=== PATIENT | male | born 1935 | race Hispanic/Latino ===

== ENCOUNTER 2020-05-16 17:58 | Observation (INO) | payer MEDICARE, OTHER ==
[~2020-05-16] VITALS: Ht 172.7 cm; Wt 80.7 kg
[~2020-05-16 17:58] MED LIST: GLIPIZIDE10 MG PO; GLUCOPHAGE1000 MG PO; LISINOPRIL40 MG PO
[2020-05-16 19:01] LABS: BASOPHILS % 0.2 % (0.0-1.0); EOSINOPHILS % 0.4 % (0.0-6.0); HEMOGLOBIN 8.8 g/dL (14.0-18.0); LYMPHOCYTES # (AUTO) 0.7 (1.0-3.2); LYMPHOCYTES % 6.4 % (18.0-39.1); MEAN CORPUSCULAR HEMOGLOBIN 26.4 pg (28-32); MEAN CORPUSCULAR HGB CONC 29.3 g/dL (31-35); MEAN CORPUSCULAR VOLUME 90.1 fL (81-99); MONOCYTES # (AUTO) 0.6 (0.2-0.8); MONOCYTES % 5.8 % (4.4-11.3); NEUTROPHILS # (AUTO) 8.8 (2.1-6.9); NEUTROPHILS % 86.8 % (38.7-80.0); PLATELET COUNT 227 x10e3/uL (140-360); RED BLOOD COUNT 3.33 x10e6/uL (4.3-5.7); RED CELL DISTRIBUTION WIDTH 22.7 % (11.7-14.4)
[2020-05-16] MEDS ORDERED: DEXTROSE 50% SYRINGE 50 ML IV STA ×4 (19:16→23:02)
[2020-05-16 19:18] LABS: ALBUMIN 2.6 g/dL (3.5-5.0); ALBUMIN/GLOBULIN RATIO 0.8 (0.8-2.0); ANION GAP 11.9 mmol/L (8-16); CREATININE, SERUM 1.26 mg/dL (0.72-1.25); POTASSIUM 3.9 mmol/L (3.5-5.1)
[2020-05-16 19:25] LABS: CREATINE KINASE MB 4.4 ng/mL (0-5.0)
[2020-05-16] MEDS ORDERED: DEXTROSE 5%/0.45% SOD CHL 1,000 ML IV ONE (19:30)
--- NOTE | 2020-05-16 19:36 | Emergency Department Note ---
History of Present Illnes History of Present Illness Chief Complaint: General Medicine Complaints History of Present Illness This is a 84 year old male FROM [facility] WITH BLOOD SUGAR 40. EMS LINE NON PATENT. PT STUPORUS ON ARRIVAL, STAT IV AND D50 IVP ONE AMP WITH PT NOW AAOX4. PT ARRIVED WITH STEPHENS. 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 Any updates have been documented here. Past Medical History Recent Fever: No Clinical Suspicion of Infectio: No New/Unexplained Change in Ment: No Past Medical History: Hypertension, Diabetes, A-Fib, CAD, Cancer, Hy perlipedemia Other Medical History: BPH PVD Other Surgery: MELANOMA REMOVAL RIGHT HAND RT BKA Social History Smoking Cessation: Unknown if ever smoked Counseling Performed: No Alcohol Use: None Other Last Tetanus: UNK Last Flu: UNK BY PT Last Pneumovax: UNK BY PT Review of Systems Review of Systems Constitutional: Reports no symptoms EENTM: Reports no symptoms Cardiovascular: Reports no symptoms Respiratory: Reports no symptoms Gastrointestinal: Reports no symptoms Genitourinary: Reports no symptoms Musculoskeletal: Reports no symptoms Integumentary: Reports no symptoms Neurological: Reports as per HPI Psychological: Reports no symptoms Endocrine: Reports no symptoms Hematological/Lymphatic: Reports no symptoms Physical Exam Related Data Allergies: Coded Allergies: No Known Allergies (Unverified , 07/31/13) Triage Vital Signs Vital Signs Date Time Temp Pulse Resp B/P (MAP) Pulse Ox O2 Delivery O2 Flow Rate FiO2 05/16/20 18:16 97.2 74 16 119/70 97 Vital signs reviewed: Yes Physical Exam CONSTITUTIONAL Constitutional: Present well-developed, Present well-nourished HENT HENT: Present normocephalic, Present atraumatic, Present oropharynx clear/moist, Present nose normal HENT L/R: Present left ext ear normal, Present right ext ear normal EYES Eyes: Reports PERRL, Reports conjunctivae normal NECK Neck: Present ROM normal PULMONARY Pulmonary: Present effort normal, Present breath sounds normal CARDIOVASCULAR Cardiovascular: Present regular rhythm, Present heart sounds normal, Present capillary refill normal, Present normal rate GASTROINTESTINAL Abdominal: Present soft, Present nontender, Present bowel sounds normal GENITOURINARY Genitourinary: Present exam deferred, Present other (indwelling stephens cath present) SKIN Skin: Present warm, Present dry MUSCULOSKELETAL Musculoskeletal: Present ROM normal, Present other (right bka) NEUROLOGICAL Neurological: Present alert, Present oriented x 3, Present no gross motor or sensory deficits PSYCHOLOGICAL Psychological: Present mood/affect normal, Present judgement normal Results Laboratory Result Diagram: 05/16/20181305/16/201813 Laboratory Laboratory Tests Test 05/16/20 19:18 05/16/20 18:14 05/16/20 18:07 Bedside Glucose 53 mg/dL (70-120) 293 mg/dL (70-120) White Blood Count 10.13 x10e3/uL (4.8-10.8) Red Blood Count 3.33 x10e6/uL (4.3-5.7) Hemoglobin 8.8 g/dL (14.0-18.0) Hematocrit 30.0 % (38.2-49.6) Mean Corpuscular Volume 90.1 fL (81-99) Mean Corpuscular Hemoglobin 26.4 pg (28-32) Mean Corpuscular Hemoglobin Concent 29.3 g/dL (31-35) Red Cell Distribution Width 22.7 % (11.7-14.4) Platelet Count 227 x10e3/uL (140-360) Neutrophils (%) (Auto) 86.8 % (38.7-80.0) Lymphocytes (%) (Auto) 6.4 % (18.0-39.1) Monocytes (%) (Auto) 5.8 % (4.4-11.3) Eosinophils (%) (Auto) 0.4 % (0.0-6.0) Basophils (%) (Auto) 0.2 % (0.0-1.0) Neutrophils # (Auto) 8.8 (2.1-6.9) Lymphocytes # (Auto) 0.7 (1.0-3.2) Monocytes # (Auto) 0.6 (0.2-0.8) Eosinophils # (Auto) 0.0 (0.0-0.4) Basophils # (Auto) 0.0 (0.0-0.1) Absolute Immature Granulocyte (auto 0.04 x10e3/uL (0-0.1) Sodium Level 141 mmol/L (136-145) Potassium Level 3.9 mmol/L (3.5-5.1) Chloride Level 101 mmol/L (98-107) Carbon Dioxide Level 32 mmol/L (22-29) Anion Gap 11.9 mmol/L (8-16) Blood Urea Nitrogen 23 mg/dL (7-26) Creatinine 1.26 mg/dL (0.72-1.25) Estimat Glomerular Filtration Rate 55 ML/MIN (60-) BUN/Creatinine Ratio 18 (6-25) Glucose Level 110 mg/dL (74-118) Calcium Level 9.0 mg/dL (8.4-10.2) Total Bilirubin 0.5 mg/dL (0.2-1.2) Aspartate Amino Transf (AST/SGOT) 19 IU/L (5-34) Alanine Aminotransferase (ALT/SGPT) 10 IU/L (0-55) Alkaline Phosphatase 86 IU/L (40-150) Creatine Kinase 61 IU/L (30-200) Creatine Kinase MB 4.40 ng/mL (0-5.0) Troponin I 0.012 ng/mL (0-0.300) Total Protein 6.0 g/dL (6.5-8.1) Albumin 2.6 g/dL (3.5-5.0) Globulin 3.4 g/dL (2.3-3.5) Albumin/Globulin Ratio 0.8 (0.8-2.0) Lab results reviewed: Yes Imaging Imaging results reviewed: Yes Impressions Examination: Single AP view of the chest. COMPARISON: AP chest 08/06/2013 INDICATION: Shortness of breath, hypoglycemia IMPRESSION: 1. Lines and Tubes: None 2. Hypoinflated lungs. Bibasilar atelectatic changes. Ulceration of bilateral costophrenic sulci and hemidiaphragms, suggesting bilateral pleural effusions and associated bilateral lower lobe atelectasis. Bilateral perihilar interstitial opacities likely reflect mild edema/fluid overload. 3. Cardiac silhouette is obscured. Ventral pulmonary venous congestion. 4. No acute bony abnormalities. Signed by: Dr. Carter Luna M.D. 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: Interpreted by ED physician Date: May 16, 2020 Time: 19:38 Rhythm: sinus bradycardia Ectopy: infrequent PVC's Rate: bradycardia BPM: 56 Conduction: complete LBBB ST segments normal: Yes T waves normal: Yes Q waves: V1 Clinical Impression: abnormal ECG Critical Care Time Total Critical Care Time (min): 45 Critcal care necessary due to: endocrine crisis Critcal care time spent by me: blood dram for specimens, develop tx plan w patient/surrogate, discussion w consultants, evaluation patient response to tx, examination of patient, order/perform tx or interventions, order/review laboratory studies, re-evaluation of patient condition, review of old charts Assessment & Plan Medical Decision Making MDM pt with hypoglycemia, cbc, cmp, ekg, cardiac enzymes, ua ordered to eval for uti, myocardial infarctio n, electrolyte abnormality d51/2 ns at 125/hour ordered, glucerna po ordered, will continue to follow blood sugar. Reassessment Reassessment time: 05:23 Reassessment DESPITE EFFORTS PT CONTINUES TO DROP BLOOD SUGAR BELOW 60 EVERY HOUR TO HOUR AND A HALF, PT WILL REQUIRE ADMIT TO ICU Assessment & Plan Final Impression: (1) UTI (urinary tract infection) (2) Hypoglycemia secondary to sulfonylurea Depart Disposition: ADMITTED Last Vital Signs Date Time Temp Pulse Resp B/P (MAP) Pulse Ox O2 Delivery O2 Flow Rate FiO2 05/16/20 19:11 63 18 118/62 100 05/16/20 18:16 97.2 Home Meds Reported Medications Glipizide (GLIPIZIDE) 10 Mg Tablet, 10 MG PO DAILY 07/16/13 Metformin Hcl (GLUCOPHAGE) 1,000 Mg Tablet, 1000 MG PO BID 07/16/13 Lisinopril (LISINOPRIL) 40 Mg Tablet, 20 MG PO BID 07/16/13 Medications in the ED Dextrose 50 ml NOW STAT IV Last administered on 05/16/20at 18:10; Admin Dose 50 ML; Start 05/16/20 at 19:16; Stop 05/16/20 at 19:19; Status DC Dextrose 50 ml NOW STAT IV ; Start 05/16/20 at 19:20; Stop 05/16/20 at 19:24; Status DC Dextrose/Sodium Chloride 1,000 ml @ 125 mls/hr Q8H ONCE IV ; Start 05/16/20 at 19:30; Stop 05/17/20 at 03:29 ORION MEDINA MD May 16, 2020 19:36
[2020-05-16] MEDS ORDERED: DEXTROSE 10% 1,000 ML IV ONE (21:00)
--- NOTE | 2020-05-16 21:09 | NUR ---
PT GIVEN GLUCERNA. PT TOLERATED WELL.
[2020-05-16 21:25] LABS: COLOR,URINE YELLOW (YELLOW)
[2020-05-16 21:26] LABS: BILIRUBIN,URINE NEGATIVE (NEGATIVE); CLARITY,URINE SL CLOUDY (CLEAR); KETONES,URINE NEGATIVE (NEGATIVE); LEUKOCYTE ESTERASE ,URINE SMALL (NEGATIVE); NITRITE,URINE POSITIVE (NEGATIVE); PROTEIN,URINE DIPSTICK NEGATIVE (NEGATIVE); URINE UROBILINOGEN 0.2 mg/dL (0.2 - 1)
[2020-05-16 21:36] LABS: AMORPHOUS SEDIMENT,URINE MODERATE (FEW); BACTERIA,URINE MANY /HPF; EPITHELIAL CELLS,URINE FEW /LPF; RBC,URINE 0-5 /HPF (0-5)
--- NOTE | 2020-05-16 22:35 | Diagnostic Imaging Report ---
Examination: Single AP view of the chest. COMPARISON: AP chest 08/06/2013 INDICATION: Shortness of breath, hypoglycemia IMPRESSION: 1. Lines and Tubes: None 2. Hypoinflated lungs. Bibasilar atelectatic changes. Ulceration of bilateral costophrenic sulci and hemidiaphragms, suggesting bilateral pleural effusions and associated bilateral lower lobe atelectasis. Bilateral perihilar interstitial opacities likely reflect mild edema/fluid overload. 3. Cardiac silhouette is obscured. Ventral pulmonary venous congestion. 4. No acute bony abnormalities. Signed by: Dr. Gaudencio Luna M.D. on 05/16/2020 10:32 PM
[2020-05-16] MEDS ORDERED: CEFTRIAXONE SOD 1 GM/NS 50 ML 50 ML IV ONE (23:00)
[2020-05-17] VITALS (11 sets, daily range): BP systolic 113–135; BP diastolic 48–87
[2020-05-17] MEDS: DEXTROSE 50% SYRINGE 50 ML IV PRN ×3 (01:04→06:32)
[2020-05-17] MEDS ORDERED: FUROSEMIDE INJ 10 MG/ML 2 ML VIAL IV ONE ×2 (03:15→04:30)
--- NOTE | 2020-05-17 04:19 | NUR ---
PT C/O INCREASED SOB. EXPIRATORY WHEEZING NOTED. ER MD NOTIFIED AND AWARE. ER MD AT BEDSIDE FOR ASSESSMENT. RADIOLOGY CALLED FOR REPEAT CHEST XRAY AND REPEAT CARDIAC MARKERS, BMP AND BNP OBTAINED.
[2020-05-17 04:40] LABS: ANION GAP 15.1 mmol/L (8-16); CALCIUM 8.8 mg/dL (8.4-10.2); CREATININE, SERUM 1.19 mg/dL (0.72-1.25); POTASSIUM 4.1 mmol/L (3.5-5.1)
[2020-05-17 04:47] LABS: CREATINE KINASE MB 6.1 ng/mL (0-5.0)
--- NOTE | 2020-05-17 04:51 | Diagnostic Imaging Report ---
Examination: Single AP view of the chest. COMPARISON: Portable chest 05/16/2020 INDICATION: Shortness of breath, hypoglycemia IMPRESSION: 1. Lines and Tubes: None 2. No interval change in hypoinflated lungs, bibasilar atelectatic changes and obscuration of bilateral costophrenic sulci and hemidiaphragms system with bilateral pleural effusions and associated bilateral lower lobe atelectasis. Stable central venous crowding and bilateral perihilar edema. 3. Cardiomediastinal silhouette is obscured. Central pulmonary venous congestion 4. No acute bony abnormalities. Signed by: Dr. Gaudencio Luna M.D. on 05/17/2020 4:48 AM
[2020-05-17] MEDS ORDERED: DEXTROSE 50% SYRINGE 50 ML IV PRN (05:15)
[2020-05-17] MEDS ORDERED: ONDANSETRON HCL INJ 2MG/ML 2ML 2 MG/ML VIAL IV PRN (05:30)
[2020-05-17] MEDS ORDERED: FUROSEMIDE INJ 10 MG/ML 4 ML VIAL IV ONE ×2 (06:30→08:00)
[2020-05-17] MEDS ORDERED: METHYLPREDNISOLONE SOD SUCC 125 MG/2ML VIAL ONE (06:40)
--- NOTE | 2020-05-17 06:40 | NUR ---
RT AT BEDSIDE TO ADMINISTER DUONEB TREATMENT.
[2020-05-17] MEDS ORDERED: ALBUTEROL/IPRATROPIUM 3 ML NEB NEB ONE (06:45)
[2020-05-17] MEDS ORDERED: METHYLPREDNISOLONE SOD SUCC 125 MG/2ML VIAL IV ONE (06:45)
[2020-05-17] MEDS: OCTREOTIDE ACETATE 0.05 MG/ML AMP SQ SCH ×4 (07:29→23:46)
--- NOTE | 2020-05-17 07:30 | NUR ---
PT AAOX4. SITTING MODIFIED HIGH FOWLERS, MONITORS ON, O2, SLIGHTLY TACHYPNENIC, DENIES CP, STATES SLIGHT SOB AND STATES "BETTER" THAN EARLIER. FOOD TRAY BEING EATTEN. PT UPDATED PLAN OF CARE. SR NO ECTOPY. SKIN COOL/DRY. FS DONE 71
--- NOTE | 2020-05-17 07:42 | NUR ---
PT IS FROM [facility], WHEN DISCHARGE IS WRITTEN, THEN CLINICALS WILL NEED TO BE SENT TO FACILITY AT [phone]
[2020-05-17] MEDS: LISINOPRIL 20 MG TAB PO SCH ×2 (08:11→16:43)
--- NOTE | 2020-05-17 08:11 | NUR ---
PAUL HERE TO SEE PT
[2020-05-17] MEDS ORDERED: DEXTROSE 10% 1,000 ML IV ONE (08:15)
--- NOTE | 2020-05-17 08:42 | Diagnostic Imaging Report ---
EXAMINATION: CHEST SINGLE (PORTABLE) INDICATION: Shortness of breath COMPARISON: Chest radiograph of earlier the same day FINDINGS: LINES/TUBES:EKG leads overlie the chest. LUNGS:The lung volumes remain low. Bibasilar patchy opacities. PLEURA:No pleural effusion or pneumothorax. MEDIASTINUM:The cardiomediastinal silhouette appears unchanged in size and shape. Atherosclerotic calcifications of the thoracic aorta. BONES/SOFT TISSUES:Postoperative findings of prior CABG. Sternotomy wires in place. ABDOMEN:No free air under the diaphragm. IMPRESSION: No significant interval change. Signed by: Jace Callahan MD on 05/17/2020 8:39 AM
--- NOTE | 2020-05-17 08:51 | Consultation ---
DATE OF CONSULTATION: Pulmonary Critical Care Consultation CHIEF COMPLAINT: Hypoglycemia. HISTORY OF PRESENT ILLNESS: The patient is an 84-year-old man with a history of systolic cardiomyopathy and congestive heart failure, diabetes, atrial fibrillation, and recent nxzrp-afe-fftz amputation for peripheral vascular disease. The patient was hospitalized at [facility] about 3 weeks ago for amputation. He has been at [facility] for about 2 [facility]. He was transferred to the hospital because of decreased responsiveness and low blood sugars. Apparently, he was taking glipizide as well as metformin. When he arrived, he required D50 and had to be placed on a D10 drip. His blood sugars have been persistently low. He denies any fever or chills. He is not complaining of cough or dyspnea. PAST SURGICAL HISTORY: 1. Status post removal of a melanoma from the right hand. 2. Status post right xjaof-eny-gyrs amputation. PAST MEDICAL HISTORY: 1. Chronic systolic congestive heart failure. 2. Diabetes. 3. Cancer. 4. Hypertension. 5. Benign prostatic hypertrophy. SOCIAL HISTORY: The patient is staying at [facility]. He is not an active smoker or drinker. ALLERGIES: THE PATIENT HAS NO KNOWN DRUG ALLERGIES. FAMILY HISTORY: Noncontributory. REVIEW OF SYSTEMS: The patient is afebrile. He is not complaining of headache or neck pain. He does not complain of chest pain. He notes mild dyspnea. He has no cough. He has no abdominal pain. He has no nausea or vomiting. He is concerned about the wound care from his recent amputation. PHYSICAL EXAMINATION: VITAL SIGNS: The blood pressure is 144/65 and the respiratory rate is 22. Pulse is 74 and the saturation is 98%. He is on a nasal cannula. HEENT: Shows no facial swelling or erythema. CARDIAC: Reveals regular rate and rhythm with normal S1 and S2. LUNGS: Auscultation of lungs reveals crackles and rhonchi at the bases. There is no wheezing. ABDOMEN: Soft and nontender. There is no rebound or guarding. EXTREMITIES: Shows zqwjv-lxl-zgxw amputation on the right side. NEUROLOGICAL: There are no focal neurological abnormalities. LABORATORY DATA: White blood cell count is 10.1 and hemoglobin is 8.8. The platelet count is 227. BUN to creatinine ratio is 23 to 1.19. The BNP is 2610. Other electrolytes within normal limits. RADIOGRAPHIC DATA: Chest x-ray shows bibasilar atelectasis and possible small pleural effusions. IMPRESSION: 1. Hypoglycemia secondary to medications. 2. Chronic systolic congestive heart failure. 3. Paroxysmal atrial fibrillation. 4. Chronic renal insufficiency, stage 3. 5. Anemia, unspecified. 6. Peripheral vascular disease leading to xpeaw-ouc-cbcb amputation. 7. Benign prostatic hypertrophy. PLAN: 1. Continue D10 drip and monitor blood sugars every hour. 2. Continue Lasix. 3. Echocardiogram and Cardiology evaluation. 4. Wound care. 5. Monitor blood pressure and creatinine. Lm Chowdhury MD [facility]/MODL /[id number]
[2020-05-17] MEDS ORDERED: NON-FORMULARY MEDICATION (Lisinopril 20 MG) PO SCH (09:00)
[2020-05-17] MEDS ORDERED: FINASTERIDE5 MG PO (12:17)
[2020-05-17] MEDS ORDERED: AMIODARONE HCL200 MG PO (12:17)
[2020-05-17] MEDS ORDERED: FLOMAX0.4 MG PO (12:17)
[2020-05-17] MEDS ORDERED: ACETAMINOPHEN325 M1 PO (12:17)
[2020-05-17] MEDS ORDERED: POTASSIUM CHLO20 ME1 PO (12:17)
[2020-05-17] MEDS ORDERED: ZAROXOLYN PO (12:17)
[2020-05-17] MEDS ORDERED: ISOSORBIDE DINI20 MG PO (12:17)
[2020-05-17] MEDS ORDERED: FUROSEMIDE80 MG PO (12:17)
[2020-05-17] MEDS ORDERED: LEVOTHYROXINE75 MCG PO (12:17)
[2020-05-17] MEDS ORDERED: ATORVASTATIN CA20 MG PO (12:17)
[2020-05-17] MEDS ORDERED: ASPIRIN81 MG PO (12:17)
[2020-05-17] MEDS ORDERED: ACETAMINOPHEN 325 MG TAB PO PRN (12:30)
[2020-05-17 14:54] LABS: FREE T4 (FREE THYROXINE) 0.9 ng/dL (0.8-1.8); THYROID STIMULATING HORMONE 12.289 uIU/mL (0.350-4.940)
[2020-05-17] MEDS: ISOSORBIDE DINITRATE 20 MG TAB PO SCH ×2 (15:05→21:00)
--- NOTE | 2020-05-17 15:27 | Consultation ---
DATE OF CONSULTATION: 05/17/2020 Endocrine Consultation This is a patient of Dr. Tinoco. Thank you very much for referring this patient. HISTORY OF PRESENT ILLNESS: This is 84-year-old gentleman, who was referred to me for evaluation of hypoglycemia. The patient is a known diabetic for 20+ years and is presently on glipizide and metformin at home. The patient recently had a below-knee amputation on the right side. He also has history of coronary artery disease, status post CABG, hypertension, hypothyroidism, and chronic renal failure. The patient also has peripheral vascular disease. According to the information from the [facility], the patient was doing relatively all right. He had altered mental status, brought to the hospital with a blood sugar of 58. The patient has been on D10 and his blood sugars are in 99-131 mg/dL. PHYSICAL EXAMINATION: GENERAL: Today, the patient is alert, awake, little bit apprehensive. He is slightly cachectic. VITAL SIGNS: His heart rate is around 78, blood pressure is 130/80 mmHg. HEENT: Essentially unremarkable. Thyroid is palpable. Clinically, he is near euthyroid. CHEST: Bilateral vesicular breathing. The patient has bilateral bronchospasm and basilar rales. CARDIOVASCULAR: First and second heart sounds. There is no third or fourth heart sound. Ejection systolic murmur sound grade 2/6. LABORATORY DATA: His BUN and creatinine are 29 and 1.9. Hemoglobin is 8.8 with hematocrit of 30. CLINICAL IMPRESSION: Hypoglycemia, most probably related to sulfonylurea drugs and poor oral intake. Coronary artery disease, congestive cardiac failure, chronic renal failure, hypertension, hypothyroidism. The plan at this time is to taper off the D10. Status post right below-knee amputation. PLAN: At this time is to taper off the D10. Monitor his blood sugars closely. We will also do a hemoglobin A1c and also fasting C-peptide level. Thanks again for referring this patient. I will follow this patient with you. MD JUANITO Pandey/MODL /[id number]
[2020-05-17] MEDS: INSULIN LISPRO 100 UNIT/1 ML 3ML VIAL SQ SCH ×2 (16:42→21:00)
[2020-05-17] MEDS: FUROSEMIDE 40 MG TAB PO SCH (16:42)
[2020-05-17] MEDS: POTASSIUM CHLORIDE 20 MEQ TAB CR PO SCH (16:42)
--- NOTE | 2020-05-17 17:06 | NUR ---
nsg report given to med surg 2 rn
--- NOTE | 2020-05-17 18:20 | NUR ---
RECEIVED REPORT FROM WANDA VIRK. PATIENT IN STABLE CONDITION, NO S/S OF DISTRESS. NO PAIN VOICED. STEPHENS APPLIED AND PATENT DRAINING YELLOW URINE INTO DRAINAGE BAG. BED IN LOWEST POSITION AND LOCKED. CALL LIGHT WITHIN REACH.
--- NOTE | 2020-05-17 19:24 | NUR ---
COMPLETED BEDSIDE SHIFT REPORT AND ROUNDING WITH ON COMING NIGHT NURSE. PATIENT IN STABLE CONDITION, NO S/S OF DISTRESS NOTED. NO PAIN VOICED. STEPHENS APPLIED AND PATENT DRAINING YELLOW URINE INTO DRAINAGE BAG. TELEMETRY APPLIED. BED IN LOWEST POSITION AND LOCKED. CALL LIGHT WITHIN REACH.
[2020-05-17] MEDS ORDERED: ATORVASTATIN 40 MG TAB PO SCH (21:00)
[2020-05-17] MEDS ORDERED: TAMSULOSIN HCL 0.4 MG CAP PO SCH (21:00)
--- NOTE | 2020-05-17 22:26 | NUR ---
PATIENT IS LOOKING FOR HIS WHEELCHAIR. RN WENT TO ICU TO LOOK FOR WHEELCHAIR AT ROOM 192. NO WHEELCHAIR FOUND. PATIENT MADE AWARE. PATIENT REFUSED TO SLEEP IN THE BED. HE SAID HE WAS IN THE BED ALL DAY. WANTS TO SLEEP IN THE RECLINER TONIGHT. ASSISTED TO RECLINER. CALL LIGHT WITHIN REACHED AND ENCOURAGED TO USE. MONITORED CLOSELY.
[2020-05-17] MEDS ORDERED: CEFTRIAXONE SOD 1 GM/NS 50 ML 50 ML IV SCH (23:00)
[2020-05-17] MEDS ORDERED: SODIUM CHLORIDE 0.9% 250ML 250 ML ONE (23:25)
[2020-05-18 00:54] VITALS: BP 119/48
[2020-05-18] MEDS: OCTREOTIDE ACETATE 0.05 MG/ML AMP SQ SCH ×3 (05:22→18:00)
[2020-05-18 05:34] VITALS: BP 120/65
[2020-05-18 05:58] LABS: BASOPHILS % 0.1 % (0.0-1.0); HEMATOCRIT 30.1 % (38.2-49.6); LYMPHOCYTES # (AUTO) 0.5 (1.0-3.2); MEAN CORPUSCULAR HEMOGLOBIN 26.4 pg (28-32); MEAN CORPUSCULAR HGB CONC 29.9 g/dL (31-35); MEAN CORPUSCULAR VOLUME 88.3 fL (81-99); MONOCYTES # (AUTO) 0.4 (0.2-0.8); MONOCYTES % 3.7 % (4.4-11.3); NEUTROPHILS # (AUTO) 8.5 (2.1-6.9); NEUTROPHILS % 90.9 % (38.7-80.0); PLATELET COUNT 226 x10e3/uL (140-360); RED BLOOD COUNT 3.41 x10e6/uL (4.3-5.7); RED CELL DISTRIBUTION WIDTH 22.5 % (11.7-14.4)
[2020-05-18] MEDS ORDERED: LEVOTHYROXINE SODIUM 75 MCG TAB PO SCH (06:00)
[2020-05-18 06:39] LABS: ALBUMIN 2.6 g/dL (3.5-5.0); ALBUMIN/GLOBULIN RATIO 0.7 (0.8-2.0); ANION GAP 12.5 mmol/L (8-16); CALCIUM 8.4 mg/dL (8.4-10.2); CREATININE, SERUM 1.34 mg/dL (0.72-1.25); POTASSIUM 4.5 mmol/L (3.5-5.1)
[2020-05-18] MEDS: INSULIN LISPRO 100 UNIT/1 ML 3ML VIAL SQ SCH ×2 (07:44→11:46)
[2020-05-18] MEDS: FUROSEMIDE 40 MG TAB PO SCH ×2 (08:11→17:00)
[2020-05-18 08:12] VITALS: BP 125/58
[2020-05-18] MEDS: ISOSORBIDE DINITRATE 20 MG TAB PO SCH ×2 (08:12→15:00)
[2020-05-18] MEDS: LISINOPRIL 20 MG TAB PO SCH ×2 (08:12→17:00)
[2020-05-18] MEDS: POTASSIUM CHLORIDE 20 MEQ TAB CR PO SCH ×2 (08:12→17:00)
[2020-05-18 08:50] VITALS: BP 125/58
[2020-05-18] MEDS ORDERED: FINASTERIDE 5 MG TAB PO SCH (09:00)
[2020-05-18] MEDS ORDERED: AMIODARONE HCL 200 MG TAB PO SCH (09:00)
[2020-05-18] MEDS ORDERED: ASPIRIN 81 MG CHEW TAB PO SCH (09:00)
[2020-05-18] MEDS ORDERED: METOLAZONE 5 MG TAB PO SCH (09:00)
[2020-05-18] MEDS ORDERED: ONDANSETRON HCL 4 MG ORAL DISINTEGRATING TAB PO PRN (11:30)
[2020-05-18 11:33] LABS: ANISOCYTOSIS MODERATE; HYPOCHROMASIA SLIGHT; LYMPHOCYTES % (MANUAL) 3 % (19-48); MONOCYTES % (MANUAL) 5 % (3.4-9.0); NEUTROPHILS % (MANUAL) 92 % (40-74)
[2020-05-18 11:34] LABS: OVALOCYTES FEW
[2020-05-18 11:36] LABS: BURR CELLS SLIGHT; TEAR DROP CELLS FEW
[2020-05-18 11:37] LABS: PLATELET ESTIMATE ADEQUATE; PLATELET MORPHOLOGY COMMENT NORMAL; RBC MORPHOLOGY COMMENT ABNORMAL; SCHISTOCYTES SL
[2020-05-18 12:09] VITALS: BP 97/45
--- NOTE | 2020-05-18 12:47 | NUR ---
[facility] FACILITY DISCHARGE INFORMATION PATIENT HAS BEEN ACCEPTED TO: NAME: PEDRO CHAN ADDRESS:[address] ACCEPTING MD:Bob SEALS ROOM: 14A NURSE CALL REPORT TO: [phone] IMM SIGNED AND OBTAINED (if applicable): THE FOLLOWING DOCUMENTS MUST ACCOMPANY PATIENT FOR TRANSFER: COPIED CHART: PACKET
--- NOTE | 2020-05-18 12:54 | NUR ---
WOUND CARE CONSULT FOR 84 YO MALE HX OF UTI , HYPOGLYCEMIA DAYANA 13 ON STRICT PUP STATUS AND INTERVENTIONS AND ALTERNATING PRESSURE MATTRESS LABS: WBC-9.38 HGB_9 GLUCOSE-148 [id number] SKIN ASSESSMENT COMPLETE PATIENT PRESENTS WITH SACRAL STAGE 1 [id number] X4CM DULL RED NON BLANCHABLE RIGHT BKA STAPLE LINE 20CM RIGHT LATERAL ASPECT HAS 1HJG4AM DARK AREA RECOMMENDATIONS: NURSING TO CONTINUE TO MAINTAIN STRICT PUP STATUS AND INTERVENTIONS AND ALTERNATING PRESSURE MATTRESS NURSING TO CONTINUE TO ASSIST PATIENT OUT OF BED FOR MEALS AND MUCH TOLERATED NURSING TO CONTINUE TO ASSIST PATIENT NEEDED WITH MEALS AND NUTRITIONAL SUPPLEMENTS TO ENSURE PROPER REQUIREMENTS FOR HEALING NURSING TO CONTINUE TO OFFLOAD FEET AND HEELS NEEDED WITH PILLOW SUSPENSION WHEN IN BED NURSING TO CLEAN SACRUM WITH NONABRASIVE OFFICE ADMINISTRATION INSTRUCTOR DAILY AND APPLY VENELEX OINTMENT AND ALLEVYN FOAM DRESSING NURSING TO CLEAN RIGHT BKA STAPLE LINE WITH NORMAL SALINE DAILY AND APPLY BETADINE MOISTENED 4X4 ELADIA AND ABD PAD WRAP LOOSELY WITH KERLIX SECURE WITH TAPE Addendum: 05/18/20 at 1303 by Lenin Samson RN Amended: Links added.
[2020-05-18 15:50] VITALS: BP 110/50
--- NOTE | 2020-05-18 16:35 | NUR ---
patient up in bed, eating dinner, dressing on right stump changed, IV canula removed with tip intact, no ss of infiltration noted, called report to nurse Shara ([facility])
--- NOTE | 2020-05-18 18:30 | NUR ---
patient discharged to [facility], EMS here to pick patient, not in any distress, His daughter aware about the discharge
--- NOTE | 2020-05-18 19:33 | Progress Note ---
DATE: SUBJECTIVE: The patient was transferred out of the Intensive Care Unit yesterday. His blood sugars are better. The patient is saturating 100% on 2 L. He has no fevers. PHYSICAL EXAMINATION: VITAL SIGNS: The blood pressure is 110/50, saturation is 100% on 2 L, and the pulse is 62. HEENT: Shows no facial swelling or erythema. CARDIAC: Reveals regular rate and rhythm with normal S1 and S2. LUNGS: Auscultation of lungs reveals rhonchorous breath sounds bilaterally. There is no wheezing. ABDOMEN: Soft, nontender. There is no rebound or guarding. EXTREMITIES: Shows no leg edema or calf tenderness. There is no cyanosis or clubbing. SKIN: Shows no rashes. LABORATORY DATA: BUN to creatinine ratio is 28 to 1.34. Other electrolytes are within normal limits. White blood cell count is 9.38 and hemoglobin is 9. The platelet count is 226. IMPRESSION: 1. Hypoglycemia, secondary to medications. 2. Chronic systolic congestive heart failure. 3. Chronic renal insufficiency, stage 3. 4. Anemia, unspecified. 5. Peripheral vascular disease, leading to recent iruiv-prn-azsv amputation. 6. Benign prostatic hypertrophy. PLAN: 1. The patient will continue to have his diabetic regimen adjusted. 2. Wound Care for recent BKA. 3. Continue current antibiotics. 4. Physical therapy. Lm Chowdhury MD [facility]/BEAL /[id number]
[2020-05-18] MEDS ORDERED: INSULIN GLARGINE 100 UNITS/ML VIAL SQ SCH (21:00)
--- NOTE | 2020-05-18 21:59 | Discharge Summary ---
ADMISSION DIAGNOSES: Hypoglycemia secondary to poor p.o. intake, kulov-ef-kvydlph systolic congestive heart failure, hypertension with chronic systolic congestive heart failure, benign prostatic hypertrophy, hypothyroidism, atrial fibrillation. DISCHARGE DIAGNOSES: Hypoglycemia secondary to poor p.o. intake, tthsl-vw-gaqyxwo systolic congestive heart failure, hypertension with chronic systolic congestive heart failure, benign prostatic hypertrophy, hypothyroidism, atrial fibrillation. HISTORY: BPH, hyperlipidemia, type 2 diabetes, hypothyroidism, chronic systolic CHF, hypertension, PAF, PVD. SURGICAL HISTORY: Right BKA, CABG. FAMILY HISTORY: The patient's sister has diabetes. The patient's father had a heart attack. SOCIAL HISTORY: Noncontributory. HOSPITAL COURSE: An 84-year-old male sent from [facility] due to hypoglycemia. His blood sugar was in the 40s at the [facility]. After admission, the blood sugar was 54. He was started on D10 and Endocrinology was consulted. He admits to not eating much due to poor food selection and taste of the food at the [facility]. After the D10 was started and the glipizide wore off, the patient's blood sugar remained stable. His echo showed an EF of 35% to 40%. He will resume all home medicines besides glipizide. He will discharge back to [facility]. Vital signs stable, the patient is afebrile. Dictated by Carmenza Robertson NP MD MONIKA Raya/MODL /[id number]
[2020-05-19] MEDS ORDERED: LEVOTHYROXINE SODIUM 75 MCG TAB PO SCH (06:00)
[2020-05-19] MEDS ORDERED: LEVOTHYROXINE SODIUM 88 MCG TAB PO SCH (06:00)
[2020-05-19] MEDS ORDERED: BALSAM PERU/CASTOR OIL 60 GM OINT...G. TP SCH (09:00)
--- OUTSIDE RECORDS SUMMARY | 2020-06-23 23:13 | XMS REPORT ---
Author Author Jg Mcgraw [facility] eClinicalWorks Address Unknown Phone Unavailable Care Team Providers Care Certified Indoor Environmentalist Name Role Phone Shelley Mcgraw Unavailable Allergies, Adverse Reactions, Alerts Substance Reaction Event Type N.K.D.A. Info Not Available Non Drug Allergy Problems Problem Type Condition Code Onset Dates Condition Statu s Problem PVD (peripheral vascular disease) I73.9 Active Problem Coronary artery disease invo lving [place] coronary artery of [place] heart, angina presence unspecified I25.10 Activ e Problem Right-sided carotid artery disease I77.9 Active Problem Hypothyroidism (acquired) E03.9 Ac tive Problem Type 2 diabetes mellitus wit h hyperglycemia, without long-term current use of insulin E11.65 Active Problem Hypertriglyceridemia E78.1 Active Problem Atrial fibrillation, unspecified type I48.91 Active Problem Benign prostatic hyperplasia , presence of lower urinary tract symptoms unspecified N40.0 Active Problem Essential hypertension I10 Activ e Problem Mixed hyperlipidemia E78.2 Active Assessment Hypothyroidism (acquired) E03.9 Ac tive Assessment Type 2 diabetes mellitus wit h hyperglycemia, without long-term current use of insulin E11.65 Active Assessment Essential hypertension I10 Activ e Problem Overweight E66.3 Active Assessment Hypertriglyceridemia E78.1 Active Problem Use of cane as ambulatory aid R26.2 Active Medications Medication Code System Code Instructions Start Date End Date Status Dosage Metoprolol Succinate ER [facility] [address]-56 25 MG Orally twice a d ay (bid) Active 1 tablet Tamsulosin HCl [facility] [address]-43 0.4 MG Orally Acti ve not defined OneTouch Basic System ND 0 w/Device SQ once daily (e11. 9) Aug 12, 2017 Active as directed GlipiZIDE [facility] [address]-15 10 MG Orally Once a day Active 1 tablet Furosemide [facility] [address]-54 80 MG Orally Once a day Active 1 tablet Lipitor [facility] [address]-12 20 MG Orally Once a day June 14, 2017 Active 1 tablet Amiodarone HCl [facility] [address]-87 100 MG Orally Once a day Active 1 tablet Amlodipine Besylate [facility] [address]-19 10 MG Orally Once a day Active 1 tablet Invokana [facility] [address]-99 100 MG Orally Once a day June 14 17 Dec 11, 2017 Active 1 tablet Aspir-81 [facility] [address]-08 81 MG Orally Once a day A ctive 1 tablet OneTouch Test ND 0 - SQ once daily (e11.9) Aug 12, 2017 Active as directed GlipiZIDE ER [facility] [address]-55 10 MG Orally Once a day Active 1 tablet OneTouch Lancets [facility] [address]-42 - SQ once daily (E11.9) Aug 12, 2017 Active as directed Synthroid [facility] [address]-72 50 MCG Orally Once a day June 14, 2017 Active 1 tablet on an empty stomach in the morning Finasteride [facility] [address]-16 5 MG Orally Once a day Active 1 tablet Metformin HCl [facility] [address]-14 1000 MG Orally Twice a day Active 1 tablet with meals Vital Signs Date/Time: Aug 12, 2017 BMI 27.12 Index Weight 189 lbs Height 70 in Cardiac Monitoring Heart Rate 67 /min Blood Pressure Diastolic 74 mm Hg Blood Pressure Systolic 128 mm Hg Results No Known Results Summary Purpose eClinicalWorks Submission
--- OUTSIDE RECORDS SUMMARY | 2020-06-23 23:13 | XMS REPORT ---
Author Author Jg Beebe Organization eClinicalWorks Address Unknown Phone Unavailable Care Team Providers Care Levee Superintendent Name Role Phone Ángela Beebe CP Unavailable Allergies No Known Allergies Problems Problem Type Condition Code Onset Dates Condition Statu s Problem PVD (peripheral vascular disease) I73.9 Active Problem Coronary artery disease invo lving [place] coronary artery of [place] heart, angina presence unspecified I25.10 Activ e [...] e Problem Mixed hyperlipidemia E78.2 Active Assessment Asymptomatic bacteriuria R82.71 Act dusty Problem Overweight E66.3 Active Problem Use of cane as ambulatory aid R26.2 Active Medications Medication Code System Code Instructions Start Date End Date Status Dosage Keflex [facility] [address]-90 500 MG Orally every 12 hrs June 14, 2017 June 21, 2017 Active 1 capsule Cipro [facility] [address]-23 500 MG Orally Twice a day June 14 017 June 24, 2017 Inactive 1 tablet Results No Known Results Summary Purpose eClinicalWorks Submission
--- OUTSIDE RECORDS SUMMARY | 2020-06-23 23:13 | XMS REPORT ---
Author Author gJ Beebe [facility] eClinicalWorks Address Unknown Phone Unavailable Care Team Providers Care Casting Coordinator Name Role Phone Ángela Beebe CP Unavailable Allergies, Adverse Reactions, Alerts Substance Reaction Event Type N.K.D.A. Info Not Available Non Drug Allergy Problems Problem Type Condition Code Onset Dates Condition Statu s Problem Mixed hyperlipidemia E78.2 Active Problem Essential hypertension I10 Activ e Problem Overweight E66.3 Active Problem Hypothyroidism (acquired) E03.9 Ac tive Assessment Edema, lower extremity R60.0 Activ e Problem Coronary artery disease invo lving [place] coronary artery of [place] heart, angina presence unspecified I25.10 Activ e Problem Hypertriglyceridemia E78.1 Active Problem Benign prostatic hyperplasia , presence of lower urinary tract symptoms unspecified N40.0 Active Problem Right-sided carotid artery disease I77.9 Active Problem Atrial fibrillation, unspecified type I48.91 Active Problem Type 2 diabetes mellitus wit h hyperglycemia, without long-term current use of insulin E11.65 Active Assessment Coronary artery disease invo lving [place] coronary artery of [place] heart, angina presence unspecified I25.10 Activ e Assessment Benign prostatic hyperplasia , presence of lower urinary tract symptoms unspecified N40.0 Active Assessment Hypothyroidism (acquired) E03.9 Ac tive Assessment Hypertriglyceridemia E78.1 Active Assessment Essential hypertension I10 Activ e Assessment Type 2 diabetes mellitus wit h hyperglycemia, without long-term current use of insulin E11.65 Active Assessment Atrial fibrillation, unspecified type I48.91 Active Problem PVD (peripheral vascular disease) I73.9 Active Assessment Mixed hyperlipidemia E78.2 Active Problem Use of cane as ambulatory aid R26.2 Active Medications Medication Code System Code Instructions Start Date End Date Status Dosage Furosemide NDC 67858949340 80 MG Orally Once a day A ctive 1 tablet OneTouch Basic System NDC 0 w/Device SQ once daily (e11. 9) Aug 12, 2017 Active as directed Finasteride NDC 33824332023 5 MG Orally Once a day A ctive 1 tablet GlipiZIDE ER [facility] 59234087964 10 MG Orally Once a day Active 1 tablet Amiodarone HCl [facility] 43922061158 100 MG Orally Once a day Active 1 tablet OneTouch Test NDC 0 - SQ once daily (e11.9) Aug 12, 2017 Active as directed GlipiZIDE ND 67651571732 10 MG Orally Once a day Ac tive 1 tablet Metoprolol Succinate ER ND 47820562734 25 MG Orally twice a day (bid) Active 1 tablet OneTouch Lancets ND 98342897225 - SQ once daily (E11.9) Aug 12 Active as directed Metformin HCl [facility] 78082502091 1000 MG Orally Twice a day Active 1 tablet with meals Invokana [facility] 01763656313 100 MG Orally Once a day June 14, 2017 Dec 11, 2017 Active 1 tablet Amlodipine Besylate ND 67495829343 10 MG Orally Once a day Active 1 tablet Aspir-81 [facility] 23477792396 81 MG Orally Once a day Act dusty 1 tablet GlipiZIDE ER [facility] 81952602345 10 MG Orally Once a day Active 1 tablet Vital Signs Date/Time: Sep 26, 2017 BMI 26.25 Index Weight 183 lbs Height 70 in Cardiac Monitoring Heart Rate 76 /min Blood Pressure Diastolic 64 mm Hg Blood Pressure Systolic 144 mm Hg Results No Known Results Summary Purpose eClinicalWorks Submission
--- OUTSIDE RECORDS SUMMARY | 2020-06-23 23:13 | XMS REPORT ---
Author Author Jg Beebe Organization eClinicalWorks Address Unknown Phone Unavailable Care Team Providers Care Abalone Processor Name Role Phone Ángela Beebe CP Unavailable Allergies, Adverse Reactions, Alerts Substance Reaction Event Type N.K.D.A. Info Not Available Non Drug Allergy Problems Problem Type Condition Code Onset Dates Condition Statu s Assessment Type 2 diabetes mellitus wit h hyperglycemia, without long-term current use of insulin E11.65 Active Problem Use of cane as ambulatory aid R26.2 Active Assessment Benign prostatic hyperplasia , presence of lower urinary tract symptoms unspecified N40.0 Active Problem Mixed hyperlipidemia E78.2 Active Assessment Hypothyroidism (acquired) E03.9 Ac tive Problem Overweight E66.3 Active Problem PVD (peripheral vascular disease) I73.9 Active Problem Essential hypertension I10 Activ e Problem Acute on chronic congestive heart failure, unspecified heart failure type I50.9 Active Problem Acquired hypothyroidism E03.9 Acti ve Assessment Atrial fibrillation, unspecified type I48.91 Active Assessment Essential hypertension I10 Activ e Problem Acute on chronic diastolic congestive heart failure I5 0.33 Active Assessment Mixed hyperlipidemia E78.2 Active Problem Coronary artery disease invo lving [place] coronary artery of [place] heart, angina presence unspecified I25.10 Activ e Problem Atrial fibrillation, unspecified type I48.91 Active Problem Anemia, unspecified type D64.9 Act dusty Problem Hypothyroidism (acquired) E03.9 Ac tive Assessment Encounter to discuss test results Z71.2 Active Assessment Acute on chronic diastolic congestive heart failure I5 0.33 Active Assessment Hyperkalemia E87.5 Active Assessment Anemia, unspecified type D64.9 Act dusty Problem Benign prostatic hyperplasia , presence of lower urinary tract symptoms unspecified N40.0 Active Problem Type 2 diabetes mellitus wit h hyperglycemia, without long-term current use of insulin E11.65 Active Problem Right-sided carotid artery disease I77.9 Active Medications Medication Code System Code Instructions Start Date End Date Status Dosage Amiodarone HCl [facility] 60038364866 100 MG Orally Once a day Active 1 tablet Finasteride ND 89908697207 5 MG Orally Once a day A ctive 1 tablet Metoprolol Tartrate ND 00608559130 50 MG by mouth Twice a day Active 1 tablet Amlodipine Besylate ND 64449185804 10 MG Orally Once a day Active 1 tablet Levothyroxine Sodium ND 03166144190 75 MCG Orally Once a day 2017 Active 1 tablet on an empty stomach in the morn ing OneTouch Basic System NDC 0 w/Device SQ once daily (e11. 9) Aug 12, 2017 Active as directed Atorvastatin Calcium ND 19983156814 40 mg Orally Once a day Jan Active 1 tablet GlipiZIDE ER ND 50904937976 10 mg Orally Q AM daily Active 1 tablet Metformin HCl ND 71385023157 1000 mg Orally bid LAST RE FILL, NEEDS TO BE SEEN Active 1 tablet with meals OneTouch Lancets ND 86987043299 - SQ once daily (E11.9) Aug 12 17 Active as directed Clopidogrel Bisulfate [facility] 78315188602 75 MG Orally Once a day Active 1 tablet GlipiZIDE [facility] 04261202773 10 mg Orally Q PM daily Ac tive 1 tablet Potassium Chloride [facility] [address]-49 20 MEQ Orally twice a day (bid) May 01, 2019 Active 1 tablet with food Tamsulosin HCl [facility] [address]-73 0.4 MG Orally Acti ve not defined Aspir-81 [facility] 83678565864 81 MG Orally Once a day Act dusty 1 tablet Furosemide ND 72034357141 80 mg PO twice a day (bid) Active 1 tablet OneTouch Test NDC 0 - SQ once daily (e11.9) Aug 12, 2017 Active as directed Vital Signs Date/Time: June 18, 2019 BMI 26.25 Index Weight 183 lbs Height 70 in Cardiac Monitoring Heart Rate 60 /min Blood Pressure Diastolic 80 mm Hg Blood Pressure Systolic 130 mm Hg Results No Known Results Summary Purpose eClinicalWorks Submission
--- OUTSIDE RECORDS SUMMARY | 2020-06-23 23:13 | XMS REPORT ---
Author Author Jg Beebe [facility] eClinicalWorks Address Unknown Phone Unavailable Care Team Providers Care Surface Supervisor Name Role Phone Ángela Beebe CP Unavailable Allergies, Adverse Reactions, Alerts Substance Reaction Event Type N.K.D.A. Info Not Available Non Drug Allergy Problems Problem Type Condition Code Onset Dates Condition Statu s Assessment Type 2 diabetes mellitus wit h hyperglycemia, without long-term current use of insulin E11.65 Active Assessment Edema, lower extremity R60.0 Activ e Assessment Physical exam Z00.00 Active Assessment Prostate cancer screening Z12.5 Ac tive Problem Overweight E66.3 Active Problem PVD (peripheral vascular disease) I73.9 Active Problem Use of cane as ambulatory aid R26.2 Active Problem Essential hypertension I10 Activ e Problem Mixed hyperlipidemia E78.2 Active Assessment Colon cancer screening Z12.11 Activ e Assessment BMI 27.0-27.9,adult Z68.27 Active Problem Type 2 diabetes mellitus wit h hyperglycemia, without long-term current use of insulin E11.65 Active Assessment Overweight E66.3 Active Problem Coronary artery disease invo lving [place] coronary artery of [place] heart, angina presence unspecified I25.10 Activ e Problem Right-sided carotid artery disease I77.9 Active Problem Atrial fibrillation, unspecified type I48.91 Active Problem Benign prostatic hyperplasia , presence of lower urinary tract symptoms unspecified N40.0 Active Assessment Right-sided carotid artery disease I77.9 Active Assessment Coronary artery disease invo lving [place] coronary artery of [place] heart, angina presence unspecified I25.10 Activ e Assessment Use of cane as ambulatory aid R26.2 Active Assessment PVD (peripheral vascular disease) I73.9 Active Assessment Mixed hyperlipidemia E78.2 Active Assessment Essential hypertension I10 Activ e Assessment Benign prostatic hyperplasia , presence of lower urinary tract symptoms unspecified N40.0 Active Assessment Atrial fibrillation, unspecified type I48.91 Active Medications Medication Code System Code Instructions Start Date End Date Status Dosage GlipiZIDE [facility] [address]-81 10 MG Orally Once a day Active 1 tablet Aspir-81 [facility] [address]-75 81 MG Orally Once a day A ctive 1 tablet Amiodarone HCl [facility] [address]-90 100 MG Orally Once a day Active 1 tablet Furosemide [facility] [address]-97 80 MG Orally Once a day Active 1 tablet Amlodipine Besylate [facility] [address]-34 10 MG Orally Once a day Active 1 tablet Finasteride [facility] [address]-96 5 MG Orally Once a day Active 1 tablet Tamsulosin HCl [facility] [address]-35 0.4 MG Orally Acti ve not defined Metoprolol Succinate ER [facility] [address]-15 25 MG Orally twice a d ay (bid) Active 1 tablet Metformin HCl [facility] [address]-66 1000 mg Orally Twice a day Active 1 tablet with meals Vital Signs Date/Time: May 01, 2017 BMI 27.40 Index Weight 191 lbs Height 70 in Cardiac Monitoring Heart Rate 68 /min Blood Pressure Diastolic 72 mm Hg Blood Pressure Systolic 128 mm Hg Results Name Result Date Reference Range Unit Abnormali ty Flag Chest 2 views- Xray Summary Purpose eClinicalWorks Submission
--- OUTSIDE RECORDS SUMMARY | 2020-06-23 23:13 | XMS REPORT ---
Author Author Jg Beebe Organization eClinicalWorks Address Unknown Phone Unavailable Care Team Providers Care Credit Charge Authorizer Name Role Phone Ángela Beebe CP Unavailable Allergies, Adverse Reactions, Alerts Substance Reaction Event Type N.K.D.A. Info Not Available Non Drug Allergy Problems Problem Type Condition Code Onset Dates Condition Statu s Problem Overweight E66.3 Active Problem PVD (peripheral vascular disease) I73.9 Active Problem Essential hypertension I10 Activ e Problem Acute on chronic congestive heart failure, unspecified heart failure type I50.9 Active Assessment Benign prostatic hyperplasia , presence of lower urinary tract symptoms unspecified N40.0 Active Problem Acquired hypothyroidism E03.9 Acti ve Assessment Hypothyroidism (acquired) E03.9 Ac tive Assessment Mixed hyperlipidemia E78.2 Active Problem Acute on chronic diastolic congestive heart failure I5 0.33 Active Problem Coronary artery disease invo lving [place] coronary artery of [place] heart, angina presence unspecified I25.10 Activ e Problem Atrial fibrillation, unspecified type I48.91 Active Problem Anemia, unspecified type D64.9 Act dusty Problem Hypothyroidism (acquired) E03.9 Ac tive Assessment Atrial fibrillation, unspecified type I48.91 Active Assessment Acute on chronic diastolic congestive heart failure I5 0.33 Active Assessment Essential hypertension I10 Activ e Assessment PVD (peripheral vascular disease) I73.9 Active Problem Benign prostatic hyperplasia , presence of lower urinary tract symptoms unspecified N40.0 Active Problem Type 2 diabetes mellitus wit h hyperglycemia, without long-term current use of insulin E11.65 Active Problem Use of cane as ambulatory aid R26.2 Active Assessment Type 2 diabetes mellitus wit h hyperglycemia, without long-term current use of insulin E11.65 Active Problem Right-sided carotid artery disease I77.9 Active Problem Mixed hyperlipidemia E78.2 Active Medications Medication Code System Code Instructions Start Date End Date Status Dosage Finasteride [facility] 20525970658 5 MG Orally Once a day A ctive 1 tablet Amiodarone HCl [facility] 79405010855 100 MG Orally Once a day Active 1 tablet Metformin HCl ND 67316017635 1000 mg Orally bid LAST RE FILL, NEEDS TO BE SEEN Active 1 tablet with meals OneTouch Test NDC 0 - SQ once daily (e11.9) Aug 12, 2017 Active as directed Metoprolol Tartrate ND 08127081424 50 MG by mouth Twice a day Active 1 tablet Amlodipine Besylate ND 94568067798 10 MG Orally Once a day Active 1 tablet Furosemide ND 62905845362 80 mg PO twice a day (bid) Active 1 tablet Atorvastatin Calcium ND 06498002472 40 mg Orally Once a day Mar ch 2017 Active 1 tablet Levothyroxine Sodium ND 02454049558 75 MCG Orally Once a day Ju 2017 Active 1 tablet on an empty stomach in the morn ing GlipiZIDE ER ND 74781445630 10 mg Orally Q AM daily Active 1 tablet OneTouch Lancets ND 46333945179 - SQ once daily (E11.9) Aug 12 17 Active as directed GlipiZIDE [facility] 05121361395 10 mg Orally Q PM daily Ac tive 1 tablet Clopidogrel Bisulfate ND 50073130693 75 MG Orally Once a day Active 1 tablet Aspir-81 ND 41469225640 81 MG Orally Once a day Act dusty 1 tablet Potassium Chloride [facility] [address]-00 20 MEQ Orally twice a day (bid) May 01, 2019 Active 1 tablet with food OneTouch Basic System NDC 0 w/Device SQ once daily (e11. 9) Aug 12, 2017 Active as directed Tamsulosin HCl [facility] [address]-99 0.4 MG Orally Acti ve not defined Vital Signs Date/Time: May 21, 2019 BMI 26.97 Index Weight 188 lbs Height 70 in Cardiac Monitoring Heart Rate 76 /min Blood Pressure Diastolic 64 mm Hg Blood Pressure Systolic 142 mm Hg Results No Known Results Summary Purpose eClinicalWorks Submission
--- OUTSIDE RECORDS SUMMARY | 2020-06-23 23:13 | XMS REPORT ---
Author Author Jg Madrid Organization eClinicalWorks Address Unknown Phone Unavailable Care Team Providers Care Operation Supervisor Name Role Phone Yani Madrid CP Unavailable Allergies No Known Allergies Problems Problem Type Condition Code Onset Dates Condition Statu s Problem Mixed hyperlipidemia E78.2 Active Problem Essential hypertension I10 Activ e Problem Overweight E66.3 Active Problem Hypothyroidism (acquired) E03.9 Ac tive Problem Coronary artery disease invo lving [place] coronary artery of [place] heart, angina presence unspecified I25.10 Activ e Problem Hypertriglyceridemia E78.1 Active Problem Benign prostatic hyperplasia , presence of lower urinary tract symptoms unspecified N40.0 Active Problem Right-sided carotid artery disease I77.9 Active Problem Atrial fibrillation, unspecified type I48.91 Active Problem Type 2 diabetes mellitus wit h hyperglycemia, without long-term current use of insulin E11.65 Active Assessment Type 2 diabetes mellitus wit h hyperglycemia, without long-term current use of insulin E11.65 Active Problem PVD (peripheral vascular disease) I73.9 Active Problem Use of cane as ambulatory aid R26.2 Active Medications Medication Code System Code Instructions Start Date End Date Status Dosage Metformin HCl [facility] 98738899020 1000 mg Orally Twice a day Active 1 tablet with meals Results No Known Results Summary Purpose eClinicalWorks Submission
--- OUTSIDE RECORDS SUMMARY | 2020-06-23 23:13 | XMS REPORT ---
Author Jg Jaramillo Organization e[employer] Address Unknown Phone Unavailable Care Team Providers Care Slat Basket Maker Name Role Phone Ángela Beebe CP Unavailable Allergies No Known Allergies Problems Problem Type Condition Code Onset Dates Condition Statu s Problem Overweight E66.3 Active Problem PVD (peripheral vascular disease) I73.9 Active Problem Essential hypertension I10 Activ e Problem Acute on chronic congestive heart failure, unspecified heart failure type I50.9 Active Problem Acquired hypothyroidism E03.9 Acti ve Problem Acute on chronic diastolic congestive heart failure I5 0.33 Active Problem Coronary artery disease invo lving [place] coronary artery of [place] heart, angina presence unspecified I25.10 Activ e Problem Atrial fibrillation, unspecified type I48.91 Active Problem Anemia, unspecified type D64.9 Act dusty Problem Hypothyroidism (acquired) E03.9 Ac tive Assessment Anemia, unspecified type D64.9 Act dusty Problem Benign prostatic hyperplasia , presence of lower urinary tract symptoms unspecified N40.0 Active Problem Type 2 diabetes mellitus wit h hyperglycemia, without long-term current use of insulin E11.65 Active Problem Use of cane as ambulatory aid R26.2 Active Problem Right-sided carotid artery disease I77.9 Active Problem Mixed hyperlipidemia E78.2 Active Medications Medication Code System Code Instructions Start Date End Date Status Dosage OneTouch Lancets [facility] 13655859254 - SQ once daily (E11.9) Aug 12 17 Active as directed Finasteride ND 42073702948 5 MG Orally Once a day A ctive 1 tablet Levothyroxine Sodium ND 23497812628 75 MCG Orally Once a day Ju 2017 Active 1 tablet on an empty stomach [place] [address]-66 20 MEQ Orally twice a day (bid) May 01, 2019 Active 1 tablet with food Furosemide ND 25186942000 80 mg PO twice a day (bid) Active 1 tablet GlipiZIDE ER ND 44944846521 10 mg Orally Q AM daily Active 1 tablet Metformin HCl [facility] 48601109849 1000 mg Orally bid LAST RE FILL, NEEDS TO BE SEEN Active 1 tablet with meals OneTouch Test NDC 0 - SQ once daily (e11.9) Aug 12, 2017 Active as directed Metoprolol Tartrate [facility] 05226100982 50 MG by mouth Twice a day Active 1 tablet Amlodipine Besylate [facility] 01754373289 10 MG Orally Once a day Active 1 tablet Atorvastatin Calcium [facility] 58818153908 40 mg Orally Once a day Jan Active 1 tablet Aspir-[address] [facility] 66571218078 81 MG Orally Once a day Act dusty 1 tablet OneTouch Basic System NDC 0 w/Device SQ once daily (e11. 9) Aug 12, 2017 Active as directed Tamsulosin HCl [facility] [address]-01 0.4 MG Orally Acti ve not defined Amiodarone HCl [facility] 73806480798 100 MG Orally Once a day Active 1 tablet Results Name Result Date Reference Range Unit Abnormali ty Flag HEMOCCULT CARD ----Result: pos x 3 [id number] Summary Purpose eClinicalWorks Submission
--- OUTSIDE RECORDS SUMMARY | 2020-06-23 23:13 | XMS REPORT ---
Author Author Jg Beebe [facility] eClinicalWorks Address Unknown Phone Unavailable Care Team Providers Care Nerve Specialist Name Role Phone Ángela Beebe CP Unavailable Allergies, Adverse Reactions, Alerts Substance Reaction Event Type N.K.D.A. Info Not Available Non Drug Allergy Problems Problem Type Condition Code Onset Dates Condition Statu s Problem Overweight E66.3 Active Assessment Benign prostatic hyperplasia , presence of lower urinary tract symptoms unspecified N40.0 Active Problem Use of cane as ambulatory aid R26.2 Active Assessment Edema, lower extremity R60.0 Activ e Problem PVD (peripheral vascular disease) I73.9 Active Problem Coronary artery disease invo lving [place] coronary artery of [place] heart, angina presence unspecified I25.10 Activ e Problem Right-sided carotid artery disease I77.9 Active Problem Hypothyroidism (acquired) E03.9 Ac tive Problem Type 2 diabetes mellitus wit h hyperglycemia, without long-term current use of insulin E11.65 Active Assessment Hypertriglyceridemia E78.1 Active Assessment Hypothyroidism (acquired) E03.9 Ac tive Problem Hypertriglyceridemia E78.1 Active Assessment Encounter to discuss test results Z71.89 Active Problem Atrial fibrillation, unspecified type I48.91 Active Problem Benign prostatic hyperplasia , presence of lower urinary tract symptoms unspecified N40.0 Active Problem Essential hypertension I10 Activ e Problem Mixed hyperlipidemia E78.2 Active Assessment Coronary artery disease invo lving [place] coronary artery of [place] heart, angina presence unspecified I25.10 Activ e Assessment Atrial fibrillation, unspecified type I48.91 Active Assessment Asymptomatic bacteriuria R82.71 Act dusty Assessment Use of cane as ambulatory aid R26.2 Active Assessment Right-sided carotid artery disease I77.9 Active Assessment Type 2 diabetes mellitus wit h hyperglycemia, without long-term current use of insulin E11.65 Active Assessment Mixed hyperlipidemia E78.2 Active Assessment Essential hypertension I10 Activ e Medications Medication Code System Code Instructions Start Date End Date Status Dosage Tamsulosin HCl [facility] [address]-11 0.4 MG Orally Acti ve not defined Furosemide [facility] [address]-36 80 MG Orally Once a day Active 1 tablet GlipiZIDE [facility] [address]-78 10 MG Orally Once a day Active 1 tablet Amiodarone HCl [facility] [address]-87 100 MG Orally Once a day Active 1 tablet Metoprolol Succinate ER [facility] [address]-54 25 MG Orally twice a d ay (bid) Active 1 tablet Amlodipine Besylate [facility] [address]-40 10 MG Orally Once a day Active 1 tablet Lipitor [facility] [address]-85 20 MG Orally Once a day June 14, 2017 Active 1 tablet Aspir-81 [facility] [address]-11 81 MG Orally Once a day A ctive 1 tablet Cipro [facility] [address]-31 500 MG Orally Twice a day June 14 017 June 24, 2017 Active 1 tablet Metformin HCl [facility] [address]-92 1000 mg Orally Twice a day Active 1 tablet with meals Synthroid [facility] [address]-10 50 MCG Orally Once a day June 14, 2017 Active 1 tablet on an empty stomach in the morning GlipiZIDE ER [facility] [address]-39 10 MG Orally Once a day Active 1 tablet Finasteride [facility] [address]-54 5 MG Orally Once a day Active 1 tablet Invokana [facility] [address]-96 100 MG Orally Once a day June 14Dec 11, 2017 Active 1 tablet Vital Signs Date/Time: June 14, 2017 BMI 27.12 Index Weight 189 lbs Height 70 in Cardiac Monitoring Heart Rate 78 /min Blood Pressure Diastolic 84 mm Hg Blood Pressure Systolic 164 mm Hg Results Name Result Date Reference Range Unit Abnormali ty Flag URINE AUTO W/O SCOPE ----Spec [place] 1.020 [id number] ----Turbidity cloudy 20170614 ----Glucose neg 20170614 ----Ketones neg 20170614 ----Blood mod 20170614 ----Bili small+ 20170614 ----Color yellow 20170614 ----pH 6.0 20170614 ----Leuk Est mod++ 20170614 ----Nitrite + 20170614 ----Urobilinogen 0.2 20170614 ----Protein 300+++ [id number] Summary Purpose eClinicalWorks Submission
--- OUTSIDE RECORDS SUMMARY | 2020-06-23 23:14 | XMS REPORT ---
Author Author Jg Munson Organization e[employer] Address Unknown Phone Unavailable Care Team Providers Care Senior Hr Generalist Name Role Phone Nikko Munson CP Unavailable Allergies, Adverse Reactions, Alerts Substance Reaction Event Type N.K.D.A. Info Not Available Non Drug Allergy Problems Problem Type Condition Code Onset Dates Condition Statu s Assessment Abnormal ECG R94.31 Active Assessment Peripheral vascular disease, unspecified I73.9 Active Assessment Bruit R09.89 Active Problem COPD J44.9 Active Problem CHF, chronic diastolic I50.32 Activ e Problem Peripheral vascular disease, unspecified I73.9 Active Assessment Bradycardia, unspecified R00.1 Act dusty Assessment COPD J44.9 Active Assessment CHF, chronic diastolic I50.32 Activ e Medications Medication Code System Code Instructions Start Date End Date Status Dosage GlipiZIDE [facility] 20748424620 10 MG Orally Once a day Ac tive 1 tablet Metformin HCl [facility] [address]-74 1000 mg Orally twice a day (bid) Active 1 tablet with a meal Potassium Chloride ER ND 88618596324 10 MEQ Orally daily Sep 08, 2019 Sep 02, 2020 Active 1 capsule with food Tamsulosin HCl ND 66652134235 0.4 MG Orally Once a day Active 1 capsule Furosemide ND 93151380855 40 mg Orally Once a day A ctive 1 tablet Aspirin ND 63238091114 81 MG Orally Once a day Acti ve 1 tablet Nitroglycerin [facility] 43268284805 0.4 MG Sublingual as needed (prn) Active as directed Finasteride ND 80344323744 5 MG Orally Once a day A ctive 1 tablet Metoprolol Tartrate ND 08239003080 25 MG Orally Twice a day Active 1 tablet with food Amiodarone HCl ND 68183441246 100 mg Orally Once a day Active 1 tablet Amlodipine Besylate ND 22531352798 5 MG Orally Once a day Active 1 tablet Vital Signs Date/Time: Sep 08, 2019 BMI 26.97 Index Weight 188 lbs Height 5ft 10in in Cardiac Monitoring Heart Rate 78 /min Blood Pressure Diastolic 72 mm Hg Blood Pressure Systolic 131 mm Hg Results No Known Results Summary Purpose eClinicalWorks Submission
--- OUTSIDE RECORDS SUMMARY | 2020-06-23 23:14 | XMS REPORT ---
Author Author Jg Beebe Organization [employer] Address Unknown Phone Unavailable Care Team Providers Care Numerical Control Machine Operator Name Role Phone Ángela Beebe CP Unavailable [...] Active Problem Coronary artery disease invo lving [place] coronary artery of [place] heart, angina presence unspecified I25.10 Activ e Problem Atrial fibrillation, unspecified type I48.91 Active Problem Anemia, unspecified type D64.9 Act dusty Problem Hypothyroidism (acquired) E03.9 Ac tive Assessment PVD (peripheral vascular disease) I73.9 Active Assessment Acute on chronic diastolic congestive heart failure I5 0.33 Active Assessment Atrial fibrillation, unspecified type I48.91 Active Assessment Essential hypertension I10 Activ e Problem Benign prostatic hyperplasia , presence of [...] Date End Date Status Dosage Metformin HCl ND 03677395669 1000 mg Orally bid LAST RE FILL, NEEDS TO BE SEEN Active 1 tablet with meals OneTouch Test NDC 0 - SQ once daily (e11.9) Aug 12, 2017 Active as directed Metoprolol Tartrate ND 09871770443 50 MG by mouth Twice a day Active 1 tablet GlipiZIDE [facility] 92406933227 10 mg Orally Q PM daily Ac tive 1 tablet Aspir-81 [facility] 46581878218 81 MG Orally Once a day Act dusty 1 tablet Amlodipine Besylate ND 61952880427 10 MG Orally Once a day Active 1 tablet OneTouch Basic System ND 0 w/Device SQ once daily (e11. 9) Aug 12, 2017 Active as directed OneTouch Lancets ND 51984917037 - SQ once daily (E11.9) Aug 12 17 Active as directed GlipiZIDE ER ND 49044453725 10 mg Orally Q AM daily Active 1 tablet Atorvastatin Calcium ND 43185995568 40 mg Orally Once a day Jan 2017 Active 1 tablet Furosemide ND 21944176932 80 MG PO 1 tablet in AM and 1/2 table t in the PM Active 1 tablet Levothyroxine Sodium ND 21721193580 75 MCG Orally Once a day 2017 Active 1 tablet on an empty stomach in the morn [facility] Potassium Chloride [facility] [address]-42 20 MEQ Orally Once a day May 01, 2019 Oct 28, 2019 Active 1 tablet with food Finasteride ND 63463472289 5 MG Orally Once a day A ctive 1 tablet Amiodarone HCl [facility] 91959358123 100 MG Orally Once a day Active 1 tablet Tamsulosin HCl [facility] [address]-78 0.4 MG Orally Acti ve not defined Clopidogrel Bisulfate [facility] 25591065544 75 MG Orally Once a day Active 1 tablet Vital Signs Date/Time: May 01, 2019 BMI 27.26 Index Weight 190 lbs Height 70 in Cardiac Monitoring Heart Rate 60 /min Blood Pressure Diastolic 64 mm Hg Blood Pressure Systolic 126 mm Hg Results No Known Results Summary Purpose eClinicalWorks Submission
--- OUTSIDE RECORDS SUMMARY | 2020-06-23 23:14 | XMS REPORT ---
Author Jg Jaramillo Organization [employer] Address Unknown Phone Unavailable Care Team Providers Care Looseleaf Binder Coverer Name Role Phone Ángela Beebe CP Unavailable Allergies, Adverse Reactions, Alerts Substance Reaction Event Type N.K.D.A. Info Not Available Non Drug Allergy Problems Problem Type Condition Code Onset Dates Condition Statu s Problem Essential hypertension I10 Activ e Problem Atrial fibrillation, unspecified type I48.91 Active Problem PVD (peripheral vascular disease) I73.9 Active Problem Acute on chronic diastolic congestive heart failure I5 0.33 Active Assessment Type 2 diabetes mellitus wit h hyperglycemia, without long-term current use of insulin E11.65 Active Problem Acute on chronic congestive heart failure, unspecified heart failure type I50.9 Active Assessment Positive occult stool blood test R19.5 Active Problem Chest pain due to CAD I25.119 Active Problem Hypothyroidism (acquired) E03.9 Ac tive Problem Coronary artery disease invo lving [place] coronary artery of [place] heart, angina presence unspecified I25.10 Activ e Problem Acquired hypothyroidism E03.9 Acti ve Problem Anemia, unspecified type D64.9 Act dusty Assessment Coronary artery disease invo lving [place] coronary artery of [place] heart, angina presence unspecified I25.10 Activ e Assessment Chest pain due to CAD I25.119 Active Assessment Essential hypertension I10 Activ e Problem Type 2 diabetes mellitus wit h hyperglycemia, without long-term current use of insulin E11.65 Active Problem Use of cane as ambulatory aid R26.2 Active Problem Right-sided carotid artery disease I77.9 Active Problem Mixed hyperlipidemia E78.2 Active Problem Benign prostatic hyperplasia , presence of lower urinary tract symptoms unspecified N40.0 Active Problem Overweight E66.3 Active Medications Medication Code System Code Instructions Start Date End Date Status Dosage OneTouch Lancets [facility] 77867965390 - SQ once daily (E11.9) Aug 12 17 Active as directed Amiodarone HCl [facility] 83964150427 100 MG Orally Once a day Active 1 tablet Metoprolol Tartrate [facility] 74385520220 50 MG by mouth Twice a day Active 1 tablet Amlodipine Besylate ND 77047639936 10 MG Orally Once a day Active 1 tablet Atorvastatin Calcium ND 94825467915 40 mg Orally Once a day Jan Active 1 tablet Tamsulosin HCl [facility] [address]-27 0.4 MG Orally Acti ve not defined Finasteride ND 58596572730 5 MG Orally Once a day A ctive 1 tablet OneTouch Basic System NDC 0 w/Device SQ once daily (e11. 9) Aug 12, 2017 Active as directed Potassium Chloride [facility] [address]-35 20 MEQ Orally twice a day (bid) May 01, 2019 Active 1 tablet with food Levothyroxine Sodium [facility] 96379216656 75 MCG Orally Once a day 2017 Active 1 tablet on an empty stomach in the morn ing OneTouch Test NDC 0 - SQ once daily (e11.9) Aug 12, 2017 Active as directed Furosemide [facility] 22541107919 80 mg PO twice a day (bid) Active 1 tablet Metformin HCl [facility] [address]-95 1000 mg Orally twice a day (bid) Active 1 tablet with meals GlipiZIDE ER [facility] 73944228309 10 mg Orally Q AM daily Active 1 tablet Aspir-81 [facility] 54712290424 81 MG Orally Once a day Act dusty 1 tablet Vital Signs Date/Time: Jul 15, 2019 BMI 27.12 Index Weight 189 lbs Height 70 in Cardiac Monitoring Heart Rate 58 /min Blood Pressure Diastolic 64 mm Hg Blood Pressure Systolic 128 mm Hg Results No Known Results Summary Purpose eClinicalWorks Submission
--- OUTSIDE RECORDS SUMMARY | 2020-06-23 23:14 | XMS REPORT ---
Author Author Jg Beebe Organization eClinicalWorks Address Unknown Phone Unavailable Care Team Providers Care Pulmonary Physician Name Role Phone Ángela Beebe CP Unavailable Allergies, Adverse Reactions, Alerts Substance Reaction Event Type N.K.D.A. Info Not Available Non Drug Allergy Problems Problem Type Condition Code Onset Dates Condition Statu s Problem Type 2 diabetes mellitus wit h hyperglycemia, without long-term current use of insulin E11.65 Active Problem Coronary artery disease invo lving [place] coronary artery of [place] heart, angina presence unspecified I25.10 Activ e Problem Atrial fibrillation, unspecified type I48.91 Active Problem Hypothyroidism (acquired) E03.9 Ac tive Assessment Congestive heart failure, un specified HF chronicity, unspecified heart failure type I50.9 Active Problem Hypertriglyceridemia E78.1 Active Problem Acquired hypothyroidism E03.9 Acti ve Problem Mixed hyperlipidemia E78.2 Active Problem Use of cane as ambulatory aid R26.2 Active Problem Essential hypertension I10 Activ e Problem Overweight E66.3 Active Assessment Coronary artery disease invo lving [place] coronary artery of [place] heart, angina presence unspecified I25.10 Activ e Assessment Atrial fibrillation, unspecified type I48.91 Active Assessment Benign prostatic hyperplasia , presence of lower urinary tract symptoms unspecified N40.0 Active Assessment Hypothyroidism (acquired) E03.9 Ac tive Assessment Type 2 diabetes mellitus wit h hyperglycemia, without long-term current use of insulin E11.65 Active Problem PVD (peripheral vascular disease) I73.9 Active Assessment Mixed hyperlipidemia E78.2 Active Problem Right-sided carotid artery disease I77.9 Active Assessment Essential hypertension I10 Activ e Problem Benign prostatic hyperplasia , presence of lower urinary tract symptoms unspecified N40.0 Active Medications Medication Code System Code Instructions Start Date End Date Status Dosage OneTouch Basic System NDC 0 w/Device SQ once daily (e11. 9) Aug 12, 2017 Active as directed Clopidogrel Bisulfate ND 59382570802 75 MG Orally Once a day Active 1 tablet Amlodipine Besylate ND 73129443908 10 MG Orally Once a day Active 1 tablet Aspir-81 ND 56711951198 81 MG Orally Once a day Act dusty 1 tablet Tamsulosin HCl [facility] [address]-56 0.4 MG Orally Acti ve not defined GlipiZIDE ND 52943727789 10 mg Orally twice a day (bid) Active 1 tablet Finasteride ND 31944954189 5 MG Orally Once a day A ctive 1 tablet Amiodarone HCl [facility] 20251285186 100 MG Orally Once a day Active 1 tablet Metoprolol Succinate NDC 0 50 mg Orally twice a day ( bid) February 11, 2018 June 11, 2018 Active as directed Synthroid [facility] 64806857078 100 MCG Orally Once a day Oct 24, 2017 Active 1 tablet on an empty stomach in the morning Metformin HCl ND 56635793638 1000 mg Orally Twice a day Active 1 tablet with meals Furosemide ND 28711285115 80 mg Active 1 tablet q am; and 1/2 tablet q pm daily Orally 30 days OneTouch Lancets ND 86379068264 - SQ once daily (E11.9) Aug 12 17 Active as directed OneTouch Test NDC 0 - SQ once daily (e11.9) Aug 12, 2017 Active as directed Atorvastatin Calcium [facility] 54041519041 40 mg Orally Once a day Jan Active 1 tablet Vital Signs Date/Time: April 01, 2018 BMI 27.40 Index Weight 191 lbs Height 70 in Cardiac Monitoring Heart Rate 64 /min Blood Pressure Diastolic 62 mm Hg Blood Pressure Systolic 102 mm Hg Results No Known Results Summary Purpose eClinicalWorks Submission
--- OUTSIDE RECORDS SUMMARY | 2020-06-23 23:14 | XMS REPORT ---
Author Author Jg Beebe Organization eClinicalWorks Address Unknown Phone Unavailable Care Team Providers Care Entry Level Account Representative Name Role Phone Ángela Beebe CP Unavailable Allergies No Known Allergies Problems Problem Type Condition Code Onset Dates Condition Statu s Problem Essential hypertension I10 Activ e Problem Atrial fibrillation, unspecified type I48.91 Active Problem PVD (peripheral vascular disease) I73.9 Active Problem Acute on chronic diastolic congestive heart failure I5 0.33 Active Problem Acute on chronic congestive heart failure, unspecified heart failure type I50.9 Active Problem Chest pain due to CAD I25.119 Active Problem Hypothyroidism (acquired) E03.9 Ac tive Problem Coronary artery disease invo lving [place] coronary artery of [place] heart, angina presence unspecified I25.10 Activ e Problem Acquired hypothyroidism E03.9 Acti ve Problem Anemia, unspecified type D64.9 Act dusty Problem Type 2 diabetes mellitus wit h [...] Date End Date Status Dosage Metformin HCl [facility] 31221879985 1000 mg Orally bid LAST RE FILL, NEEDS TO BE SEEN Active 1 tablet with meals Results No Known Results Summary Purpose eClinicalWorks Submission
--- OUTSIDE RECORDS SUMMARY | 2020-06-23 23:14 | XMS REPORT ---
Author Author Jg Beebe Organization e[employer] Address Unknown Phone Unavailable Care Team Providers Care Manager Shipping Name Role Phone Ángela Beebe CP Unavailable [...] tive Problem Coronary artery disease invo lving [place] coronary artery of [place] heart, angina presence unspecified I25.10 Activ e [...] N40.0 Active Problem Overweight E66.3 Active Medications No Known Medications Results No Known Results Summary Purpose eClinicalWorks Submission
--- OUTSIDE RECORDS SUMMARY | 2020-06-23 23:14 | XMS REPORT ---
Author Author Jg Beebe Organization [employer] Address Unknown Phone Unavailable Care Team Providers Care Tetryl Wringer Operator Name Role Phone Ángela Beebe CP Unavailable Allergies, Adverse Reactions, Alerts Substance Reaction Event Type N.K.D.A. Info Not Available Non Drug Allergy Problems Problem Type Condition Code Onset Dates Condition Statu s Assessment Acute on chronic diastolic congestive heart failure I5 0.33 Active Assessment Hypothyroidism (acquired) E03.9 Ac tive Assessment Acute on chronic congestive heart failure, unspecified heart failure type I50.9 Active Assessment Benign prostatic hyperplasia , presence of lower urinary tract symptoms unspecified N40.0 Active Assessment Wheelchair bound Z99.3 Active Assessment Skin ulcer of right foot with necrosis of muscle L97.5 13 Active Assessment Coronary artery disease invo lving [place] coronary artery of [place] heart, angina presence unspecified I25.10 Activ e Assessment Atrial fibrillation, unspecified type I48.91 Active Problem Benign prostatic hyperplasia , presence of lower urinary tract symptoms unspecified N40.0 Active Assessment Mixed hyperlipidemia E78.2 Active Problem Type 2 diabetes mellitus wit h hyperglycemia, without long-term current use of insulin E11.65 Active Assessment Essential hypertension I10 Activ e Problem PVD (peripheral vascular disease) I73.9 Active Problem Coronary artery disease invo lving [place] coronary artery of [place] heart, angina presence unspecified I25.10 Activ e Problem Atrial fibrillation, unspecified type I48.91 Active Problem Wheelchair bound Z99.3 Active Problem 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 Assessment 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 Assessment PAD (peripheral artery disease) I73.9 Active Problem PAD (peripheral artery disease) I73.9 Active Assessment Type 2 diabetes mellitus wit h hyperglycemia, without long-term current use of insulin E11.65 Active Problem Anemia, unspecified type D64.9 Act dusty Problem Hypothyroidism (acquired) E03.9 Ac tive Problem Chronic congestive heart failure, unspecified he art failure type I50.9 Active Problem Skin ulcer of right foot with necrosis of muscle L97.5 13 Active Problem Overweight E66.3 Active Assessment Cellulitis of foot L03.119 Active Assessment Hospital discharge follow-up Z09 Active Problem Mixed hyperlipidemia E78.2 Active Problem Right-sided carotid artery disease I77.9 Active Problem Essential hypertension I10 Activ e Problem Use of cane as ambulatory aid R26.2 Active Medications Medication Code System Code Instructions Start Date End Date Status Dosage Isosorbide Dinitrate ND 93688443560 20 mg Orally TID Active 1 tablet Zaroxolyn NDC 0 5 MG Orally Once a day in the morning February Active 1 tablet 30 minutes prior to Lasix Finasteride ND 45206088645 5 MG Orally Once a day A ctive 1 tablet OneTouch Basic System NDC 0 w/Device SQ once daily (e11. 9) Aug 12, 2017 Active as directed OneTouch Test NDC 0 - SQ once daily (e11.9) Aug 12, 2017 Active as directed OneTouch Lancets ND 08928774424 - SQ once daily (E11.9) Aug 12 17 Active as directed Levothyroxine Sodium ND 17458269340 75 MCG Orally Once a day 2017 Active 1 tablet on an empty stomach in the morn ing Furosemide ND 29415991564 80 mg PO twice a day (bid) Active 1 tablet Amiodarone HCl ND 91442055320 100 MG Orally Once a day Active 1 tablet Metformin HCl ND 01522806338 1000 mg Orally Twice a day Active 1 tablet with meals Lisinopril ND 80153940115 5 MG Orally Once a day Ac tive 1 tablet Aspir-81 ND 62638807969 81 MG Orally Once a day Act dusty 1 [place] [address]-42 0.4 MG Orally Acti ve not defined GlipiZIDE ND 72271176431 10 mg Orally Q PM daily Ac tive 1 tablet Atorvastatin Calcium ND 43810168373 40 mg Orally Once a day Jan Active 1 [place] [address]-00 20 MEQ Orally twice a day (bid) May 01, 2019 Active 1 tablet with food Vital Signs Date/Time: May 04, 2020 Blood Pressure Systolic 108 mm Hg Weight w/c lbs Height 70 in Temperature 98.3 F Cardiac Monitoring Heart Rate 66 /min Blood Pressure Diastolic 56 mm Hg Results No Known Results Summary Purpose [employer]ClinicalWorks Submission
--- OUTSIDE RECORDS SUMMARY | 2020-06-23 23:14 | XMS REPORT ---
Author Author Jg Beebe Organization [employer] Address Unknown Phone Unavailable Care Team Providers Care Trademark Attorney Name Role Phone Ángela Beebe CP Unavailable [...] congestive heart failure I5 0.33 Active Assessment Hospital discharge follow-up Z09 Active Problem Acute on chronic congestive heart failure, unspecified heart failure type I50.9 Active Assessment Atrial fibrillation, unspecified type I48.91 Active Assessment Coronary artery disease invo lving [place] coronary artery of [place] heart, angina presence unspecified I25.10 Activ e Problem Chest pain due to CAD I25.119 Active Problem Hypothyroidism (acquired) E03.9 Ac tive Problem Coronary artery disease invo lving [place] coronary artery of [place] heart, angina presence unspecified I25.10 Activ e Problem Acquired hypothyroidism E03.9 Acti ve Problem Anemia, unspecified type D64.9 Act dusty Assessment Acute on chronic congestive heart failure, unspecified heart failure type I50.9 Active Assessment Essential hypertension I10 Activ e Assessment Type 2 diabetes mellitus wit h hyperglycemia, without long-term current use of insulin E11.65 Active Problem Type 2 diabetes mellitus wit [...] Start Date End Date Status Dosage GlipiZIDE ER [facility] 29350661211 10 mg Orally Q AM daily Active 1 tablet Tamsulosin HCl [facility] [address]-32 0.4 MG Orally Acti ve not defined OneTouch Lancets NDC 42632585035 - SQ once daily (E11.9) Aug 12 17 Active as directed GlipiZIDE ND 53894212108 10 mg Orally Q PM daily Ac tive 1 tablet OneTouch Test NDC 0 - SQ once daily (e11.9) Aug 12, 2017 Active as directed Atorvastatin Calcium ND 57099192484 40 mg Orally Once a day Mar 2017 Active 1 tablet Zaroxolyn NDC 0 5 MG Orally every other day Sep 30, 2019 Active 1 tablet Metoprolol Tartrate ND 06843592123 50 MG by mouth Twice a day Active 1 tablet Amlodipine Besylate ND 87379808457 10 MG Orally Once a day Active 1 tablet Metformin HCl ND 53801406115 1000 mg Orally twice a day (bid) Active 1 tablet with meals OneTouch Basic System NDC 0 w/Device SQ once daily (e11. 9) Aug 12, 2017 Active as directed Aspir-81 ND 20001031870 81 MG Orally Once a day Act dusty 1 tablet Finasteride ND 73068348376 5 MG Orally Once a day A ctive 1 tablet Levothyroxine Sodium ND 66037503515 75 MCG Orally Once a day 2017 Active 1 tablet on an empty stomach in the morn ing Amiodarone HCl ND 91025391079 100 MG Orally Once a day Active 1 tablet Furosemide ND 36898745678 80 mg PO twice a day (bid) Active 1 tablet Potassium Chloride [facility] [address]-69 20 MEQ Orally twice a day (bid) May 01, 2019 Active 1 tablet with food Vital Signs Date/Time: Sep 30, 2019 BMI 25.39 Index Weight 177 lbs Height 70 in Cardiac Monitoring Heart Rate 77 /min Blood Pressure Diastolic 64 mm Hg Blood Pressure Systolic 164 mm Hg Results No Known Results Summary Purpose eClinicalWorks Submission
--- OUTSIDE RECORDS SUMMARY | 2020-06-23 23:14 | XMS REPORT ---
Author Author Jg Beebe [facility] eClinicalWorks Address Unknown Phone Unavailable Care Team Providers Care Online Marketing Specialist Name Role Phone Ángela Beebe CP Unavailable Allergies, Adverse Reactions, Alerts Substance Reaction Event Type N.K.D.A. Info Not Available Non Drug Allergy Problems Problem Type Condition Code Onset Dates Condition Statu s Problem Type 2 diabetes mellitus wit h hyperglycemia, without long-term current use of insulin E11.65 Active Problem Coronary artery disease invo lving [place] coronary artery of [place] heart, angina presence unspecified I25.10 Activ e Problem Atrial fibrillation, unspecified type I48.91 Active Problem Hypothyroidism (acquired) E03.9 Ac tive Assessment Edema, lower extremity R60.0 Activ e Problem Hypertriglyceridemia E78.1 Active Assessment Acquired hypothyroidism E03.9 Acti ve Assessment Encounter to discuss test results Z71.89 Active Problem Acquired hypothyroidism E03.9 Acti ve Problem Mixed hyperlipidemia E78.2 Active Problem Use of cane as ambulatory aid R26.2 Active Problem Essential hypertension I10 Activ e Problem Overweight E66.3 Active Assessment Atrial fibrillation, unspecified type I48.91 Active Assessment Benign prostatic hyperplasia , presence of lower urinary tract symptoms unspecified N40.0 Active Assessment Coronary artery disease invo lving [place] coronary artery of [place] heart, angina presence unspecified I25.10 Activ e Assessment SOB (shortness of breath) R06.02 Ac tive Assessment Type 2 diabetes mellitus [...] Instructions Start Date End Date Status Dosage Invokana [facility] 29609567359 100 MG Orally Once a day June 14, 2017 Dec 11, 2017 Active 1 tablet Amlodipine Besylate [facility] 53571079463 10 MG Orally Once a day Active 1 tablet GlipiZIDE ND 21159955794 10 mg Orally Q PM daily Ac tive 1 tablet Finasteride ND 53954686125 5 MG Orally Once a day A ctive 1 tablet Metformin HCl ND 91010518012 1000 mg Orally Twice a day Active 1 tablet with meals Aspir-81 ND 49768638695 81 MG Orally Once a day Act dusty 1 tablet Zetia ND 01860809397 10 mg Orally Once a day Oct 24, 2017 Active 1 tablet GlipiZIDE ER ND 39408424793 10 mg Orally Q AM daily Active 1 tablet OneTouch Lancets ND 88389744363 - SQ once daily (E11.9) Aug 12 Active as directed OneTouch Test NDC 0 - SQ once daily (e11.9) Aug 12, 2017 Active as directed Amiodarone HCl [facility] 37077055219 100 MG Orally Once a day Active 1 tablet Furosemide ND 28061621386 80 mg Orally daily Active 1 tablet q am; and 1/2 tablet q pm OneTouch Basic System NDC 0 w/Device SQ once daily (e11. 9) Aug 12, 2017 Active as directed Synthroid [facility] 48279396994 25 MCG Orally Once a day Oct 24, 2017 Active 1 tablet on an empty stomach in the morning Metoprolol Succinate ER ND 18285613066 25 MG Orally twice a day (bid) Active 1 tablet Vital Signs Date/Time: Oct 24, 2017 BMI 26.97 Index Weight 188 lbs Height 70 in Cardiac Monitoring Heart Rate 58 /min Blood Pressure Diastolic 64 mm Hg Blood Pressure Systolic 132 mm Hg Results Name Result Date Reference Range Unit Abnormali ty Flag Chest 2 views- Xray PULSE OXIMETRY Summary Purpose eClinicalWorks Submission
--- OUTSIDE RECORDS SUMMARY | 2020-06-23 23:14 | XMS REPORT ---
Author Author Jg Munson Organization [employer] Address Unknown Phone Unavailable Care Team Providers Care Restaurant Host/Hostess Name Role Phone Nikko Munson CP Unavailable Allergies No Known Allergies Problems Problem Type Condition Code Onset Dates Condition Statu s Problem COPD J44.9 Active Problem CHF, chronic diastolic I50.32 Activ e Problem Peripheral vascular disease, unspecified I73.9 Active Medications No Known Medications Results No Known Results Summary Purpose eClinicalWorks Submission
--- OUTSIDE RECORDS SUMMARY | 2020-06-23 23:14 | XMS REPORT ---
Author Author Jg Beebe Organization [employer] Address Unknown Phone Unavailable Care Team Providers Care Chart Collector Name Role Phone Ángela Beebe CP Unavailable Allergies No Known Allergies Problems Problem Type Condition Code Onset Dates Condition Statu s Problem Use of cane as ambulatory aid R26.2 Active Problem Overweight E66.3 Active Problem Mixed hyperlipidemia E78.2 Active Problem Anemia, unspecified type D64.9 Act dusty Problem Hypothyroidism (acquired) E03.9 Ac tive Problem Acquired hypothyroidism E03.9 Acti ve Problem PVD (peripheral vascular disease) I73.9 Active Problem Essential hypertension I10 Activ e Problem Coronary artery disease invo lving [place] coronary artery of [place] heart, angina presence unspecified I25.10 Activ e Problem Atrial fibrillation, unspecified type I48.91 Active Assessment Type 2 diabetes mellitus wit h hyperglycemia, without long-term current use of insulin E11.65 Active Problem Right-sided carotid artery disease I77.9 Active Problem Benign prostatic hyperplasia , presence of lower urinary tract symptoms unspecified N40.0 Active Problem Type 2 diabetes mellitus wit h hyperglycemia, without long-term current use of insulin E11.65 Active Medications Medication Code System Code Instructions Start Date End Date Status Dosage Metformin HCl [facility] 04770858234 1000 mg Orally Twice a day Active 1 tablet with meals Results No Known Results Summary Purpose eClinicalWorks Submission
--- OUTSIDE RECORDS SUMMARY | 2020-06-23 23:14 | XMS REPORT ---
Author Author Jg Beebe Organization [employer] Address Unknown Phone Unavailable Care Team Providers Care Chemical Cell Changer Name Role Phone Ángela Beebe CP Unavailable Allergies, Adverse Reactions, Alerts Substance Reaction Event Type N.K.D.A. Info Not Available Non Drug Allergy Problems Problem Type Condition Code Onset Dates Condition Statu s Problem Mixed hyperlipidemia E78.2 Active Problem Essential hypertension I10 Activ e Problem Overweight E66.3 Active Problem Acquired hypothyroidism E03.9 Acti ve Assessment Hypothyroidism (acquired) E03.9 Ac tive Problem Anemia, unspecified type D64.9 Act dusty Assessment Atrial fibrillation, unspecified type I48.91 Active Assessment Benign prostatic hyperplasia , presence of lower urinary tract symptoms unspecified N40.0 Active Problem Acute on chronic congestive heart failure, unspecified heart failure type I50.9 Active Problem Atrial fibrillation, unspecified type I48.91 Active Problem PVD (peripheral vascular disease) I73.9 Active Problem Hypothyroidism (acquired) E03.9 Ac tive Problem Coronary artery disease invo lving [place] coronary artery of [place] heart, angina presence unspecified I25.10 Activ e Assessment Type 2 diabetes mellitus wit h hyperglycemia, without long-term current use of insulin E11.65 Active Assessment Acute on chronic congestive heart failure, unspecified heart failure type I50.9 Active Assessment Mixed hyperlipidemia E78.2 Active Assessment Essential hypertension I10 Activ e Problem Right-sided carotid artery disease I77.9 Active Problem Benign prostatic hyperplasia , presence of lower urinary tract symptoms unspecified N40.0 Active Assessment Use of cane as ambulatory aid R26.2 Active Assessment Hospital discharge follow-up Z09 Active Problem Type 2 diabetes mellitus wit h hyperglycemia, without long-term current use of insulin E11.65 Active Assessment Coronary artery disease invo lving [place] coronary artery of [place] heart, angina presence unspecified I25.10 Activ e Problem Use of cane as ambulatory aid R26.2 Active Medications Medication Code System Code Instructions Start Date End Date Status Dosage Finasteride [facility] 24366607448 5 MG Orally Once a day A ctive 1 tablet Amiodarone HCl ND 62509982412 100 MG Orally Once a day Active 1 tablet Clopidogrel Bisulfate ND 70826182693 75 MG Orally Once a day Active 1 tablet GlipiZIDE ER ND 40695413528 10 mg Orally Q AM daily Active 1 tablet Atorvastatin Calcium ND 50630311013 40 mg Orally Once a day Mar ch 2017 Active 1 tablet Levothyroxine Sodium ND 54683869377 75 MCG Orally Once a day Ju ly 2017 Active 1 tablet on an empty stomach in the morn ing OneTouch Basic System NDC 0 w/Device SQ once daily (e11. 9) Aug 12, 2017 Active as directed Aspir-81 ND 29902022680 81 MG Orally Once a day Act dusty 1 tablet Amlodipine Besylate ND 10301769486 10 MG Orally Once a day Active 1 tablet Tamsulosin HCl [facility] [address]-92 0.4 MG Orally Acti ve not defined OneTouch Lancets ND 78470466891 - SQ once daily (E11.9) Aug 12 17 Active as directed OneTouch Test NDC 0 - SQ once daily (e11.9) Aug 12, 2017 Active as directed Metformin HCl ND 53969845950 1000 mg Orally bid LAST RE FILL, NEEDS TO BE SEEN Active 1 tablet with meals Metoprolol Tartrate ND 38391126991 50 MG by mouth Twice a day Active 1 tablet Furosemide ND 25034358543 40 MG Orally daily Active 2 tablets q am; and 1 tablet q pm Synthroid ND 77390748462 100 MCG Orally Once a day Oct 24, 2017 Active 1 tablet on an empty stomach in the morning GlipiZIDE [facility] 56296011070 10 mg Orally Q PM daily Ac tive 1 tablet Vital Signs Date/Time: April 07, 2019 BMI 26.54 Index Weight 185 lbs Height 70 in Cardiac Monitoring Heart Rate 62 /min Blood Pressure Diastolic 76 mm Hg Blood Pressure Systolic 124 mm Hg Results No Known Results Summary Purpose eClinicalWorks Submission
--- OUTSIDE RECORDS SUMMARY | 2020-06-23 23:14 | XMS REPORT ---
Author Jg Jaramillo [facility] eClinicalWorks Address Unknown Phone Unavailable Care Team Providers Care Marketing Communications Manager Name Role Phone Ángela Beebe CP Unavailable Allergies, Adverse Reactions, Alerts Substance Reaction Event Type N.K.D.A. Info Not Available Non Drug Allergy Problems Problem Type Condition Code Onset Dates Condition Statu s Problem Type 2 diabetes mellitus wit h hyperglycemia, without long-term current use of insulin E11.65 Active Problem Coronary artery disease invo lving [place] coronary artery of [place] heart, angina presence unspecified I25.10 Activ e Problem Atrial fibrillation, unspecified type I48.91 Active Problem Hypothyroidism (acquired) E03.9 Ac tive Problem Hypertriglyceridemia E78.1 Active Problem Acquired hypothyroidism E03.9 Acti ve Problem Mixed hyperlipidemia E78.2 Active Problem Use of cane as ambulatory aid R26.2 Active Problem Essential hypertension I10 Activ e Problem Overweight E66.3 Active Assessment Encounter to discuss test results Z71.89 Active Assessment Hypothyroidism (acquired) E03.9 Ac tive [...] Start Date End Date Status Dosage Finasteride ND 54667981690 5 MG Orally Once a day A ctive 1 tablet Tamsulosin HCl [facility] [address]-77 0.4 MG Orally Acti ve not defined Synthroid NDC 90218524588 100 MCG Orally Once a day Oct 24, 2017 Active 1 tablet on an empty stomach in the morning OneTouch Lancets ND 02676054977 - SQ once daily (E11.9) Aug 12 17 Active as directed Amiodarone HCl ND 00062211575 100 MG Orally Once a day Active 1 tablet Atorvastatin Calcium [facility] 32217570173 40 mg Orally Once a day Jan Active 1 tablet Furosemide [facility] 58171130623 80 mg Active 1 tablet q am; and 1/2 tablet q pm daily Orally 30 days Metoprolol Succinate NDC 0 50 mg Orally twice a day ( bid) February 11, 2018 June 11, 2018 Active as directed Clopidogrel Bisulfate [facility] 81774551161 75 MG Orally Once a day Active 1 tablet Zetia [facility] 87380759989 10 mg Orally Once a day Oct 24, 2017 Inactive 1 tablet Metformin HCl [facility] 84492169262 1000 mg Orally Twice a day Active 1 tablet with meals Amlodipine Besylate [facility] 96626706388 10 MG Orally Once a day Active 1 tablet Aspir-81 [facility] 95377097814 81 MG Orally Once a day Act dusty 1 tablet OneTouch Basic System NDC 0 w/Device SQ once daily (e11. 9) Aug 12, 2017 Active as directed Metoprolol Succinate ER [facility] 78498705235 25 MG Orally twice a day (bid) Inactive 1 tablet GlipiZIDE ER [facility] 19340698788 10 mg Orally Q AM daily Inactive 1 tablet GlipiZIDE [facility] 15962712112 10 mg Orally twice a day (bid) Active 1 tablet OneTouch Test NDC 0 - SQ once daily (e11.9) Aug 12, 2017 Active as directed Vital Signs Date/Time: February 11, 2018 BMI 26.97 Index Weight 188 lbs Height 70 in Cardiac Monitoring Heart Rate 76 /min Blood Pressure Diastolic 64 mm Hg Blood Pressure Systolic 162 mm Hg Results No Known Results Summary Purpose eClinicalWorks Submission
--- OUTSIDE RECORDS SUMMARY | 2020-06-23 23:14 | XMS REPORT ---
Author Author Jg Beebe [facility] eClinicalWorks Address Unknown Phone Unavailable Care Team Providers Care Manager Eligibility Name Role Phone Ángela Beebe CP Unavailable Allergies, Adverse Reactions, Alerts Substance Reaction Event Type N.K.D.A. Info Not Available Non Drug Allergy Problems Problem Type Condition Code Onset Dates Condition Statu s Problem Type 2 diabetes mellitus wit h hyperglycemia, without long-term current use of insulin E11.65 Active Problem Coronary artery disease invo lving [place] coronary artery of [place] heart, angina presence unspecified I25.10 Activ e Problem Atrial fibrillation, unspecified type I48.91 Active Problem Hypothyroidism (acquired) E03.9 Ac tive Assessment Benign prostatic hyperplasia , presence of lower urinary tract symptoms unspecified N40.0 Active Problem Hypertriglyceridemia E78.1 Active Problem Acquired hypothyroidism E03.9 Acti ve Problem Mixed hyperlipidemia E78.2 Active Problem Use of cane as ambulatory aid R26.2 Active Problem Essential hypertension I10 Activ e Problem Overweight E66.3 Active Assessment Mixed hyperlipidemia E78.2 Active Assessment Essential hypertension I10 Activ e Assessment Atrial fibrillation, unspecified type I48.91 Active Assessment Acquired hypothyroidism E03.9 Acti ve Assessment Type 2 diabetes mellitus wit h hyperglycemia, without long-term current use of insulin E11.65 Active Problem PVD (peripheral vascular disease) I73.9 Active Assessment Chest tightness R07.89 Active Problem Right-sided carotid artery disease I77.9 Active Assessment Coronary artery disease invo lving [place] coronary artery of [place] heart, angina presence unspecified I25.10 Activ e Problem Benign prostatic hyperplasia , presence of lower urinary tract symptoms unspecified N40.0 Active Medications Medication Code System Code Instructions Start Date End Date Status Dosage Amiodarone HCl [facility] 51025651559 100 MG Orally Once a day Active 1 tablet Metoprolol Succinate ER ND 93586277985 25 MG Orally twice a day (bid) Active 1 tablet GlipiZIDE ER ND 54182490051 10 mg Orally Q AM daily Active 1 tablet Tamsulosin HCl [facility] [address]-16 0.4 MG Orally Acti ve not defined GlipiZIDE ND 87698700370 10 mg Orally Q PM daily Ac tive 1 tablet Synthroid [facility] 00543410650 25 MCG Orally Once a day Oct 24, 2017 Active 1 tablet on an empty stomach in the morning Metformin HCl ND 51253200868 1000 mg Orally Twice a day Active 1 tablet with meals Aspir-81 [facility] 09290589693 81 MG Orally Once a day Act dusty 1 tablet Furosemide [facility] 50916295645 80 mg Active 1 tablet q am; and 1/2 tablet q pm daily Orally 30 days OneTouch Basic System NDC 0 w/Device SQ once daily (e11. 9) Aug 12, 2017 Active as directed Clopidogrel Bisulfate [facility] 39327574250 75 MG Orally Once a day Active 1 tablet Zetia [facility] 90710973499 10 mg Orally Once a day Oct 24, 2017 Active 1 tablet OneTouch Test NDC 0 - SQ once daily (e11.9) Aug 12, 2017 Active as directed Finasteride [facility] 18756126958 5 MG Orally Once a day A ctive 1 tablet Amlodipine Besylate [facility] 46148281112 10 MG Orally Once a day Active 1 tablet OneTouch Lancets ND 53266810731 - SQ once daily (E11.9) Aug 12 17 Active as directed Vital Signs Date/Time: Jan 21, 2018 BMI 26.25 Index Weight 183 lbs Height 70 in Cardiac Monitoring Heart Rate 76 /min Blood Pressure Diastolic 64 mm Hg Blood Pressure Systolic 158 mm Hg Results No Known Results Summary Purpose eClinicalWorks Submission
--- OUTSIDE RECORDS SUMMARY | 2020-06-23 23:14 | XMS REPORT ---
Author Author Jg Beebe Organization [employer] Address Unknown Phone Unavailable Care Team Providers Care Manufacturing Engineer Chief Name Role Phone Ángela Beebe CP Unavailable Allergies No Known Allergies Problems Problem Type Condition Code Onset Dates Condition Statu s Problem Overweight E66.3 Active Problem PVD (peripheral vascular disease) I73.9 Active Problem Essential hypertension I10 Activ e Problem Hypothyroidism (acquired) E03.9 Ac tive Problem Coronary artery disease invo lving [place] coronary artery of [place] heart, angina presence unspecified I25.10 Activ e Problem Anemia, unspecified type D64.9 Act dusty Problem Benign prostatic hyperplasia , presence of lower urinary tract symptoms unspecified N40.0 Active Problem Right-sided carotid artery disease I77.9 Active Problem Atrial fibrillation, unspecified type I48.91 Active Problem Type 2 diabetes mellitus wit h hyperglycemia, without long-term current use of insulin E11.65 Active Assessment Mixed hyperlipidemia E78.2 Active Problem Use of cane as ambulatory aid R26.2 Active Problem Mixed hyperlipidemia E78.2 Active Medications Medication Code System Code Instructions Start Date End Date Status Dosage Atorvastatin Calcium [facility] [place] 02231925190 40 mg Orally Once a day Jan Active 1 tablet Results No Known Results Summary Purpose [employer]ClinicalWorks Submission
--- OUTSIDE RECORDS SUMMARY | 2020-06-23 23:14 | XMS REPORT ---
Author Jg Tapia [facility] eClinicalWorks Address Unknown Phone Unavailable Care Team Providers Care Mental Health Consultant Name Role Phone Vero Morales CP Unavailable Allergies, Adverse Reactions, Alerts Substance Reaction Event Type N.K.D.A. Info Not Available Non Drug Allergy Problems Problem Type Condition Code Onset Dates Condition Statu s Problem PVD (peripheral vascular disease) I73.9 Active Problem Benign prostatic hyperplasia , presence of lower urinary tract symptoms unspecified N40.0 Active Problem Right-sided carotid artery disease I77.9 Active Problem Skin ulcer of right foot with necrosis of muscle L97.5 13 Active Assessment PVD (peripheral vascular disease) I73.9 Active Problem Anemia, unspecified type D64.9 Act dusty Assessment Hypothyroidism (acquired) E03.9 Ac tive Assessment Anemia, unspecified type D64.9 Act dusty Problem Chronic congestive heart failure, unspecified he art failure type I50.9 Active Problem Atrial fibrillation, unspecified type I48.91 Active Problem Type 2 diabetes mellitus wit h hyperglycemia, without long-term current use of insulin E11.65 Active Problem Hypothyroidism (acquired) E03.9 Ac tive Problem Coronary artery disease invo lving [place] coronary artery of [place] heart, angina presence unspecified I25.10 Activ e Assessment Essential hypertension I10 Activ e Assessment Type 2 diabetes mellitus wit h hyperglycemia, without long-term current use of insulin E11.65 Active Assessment Coronary artery disease invo lving [place] coronary artery of [place] heart, angina presence unspecified I25.10 Activ e Assessment Atrial fibrillation, unspecified type I48.91 Active Problem Use of cane as ambulatory aid R26.2 Active Problem Mixed hyperlipidemia E78.2 Active Assessment 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 Active Problem Overweight E66.3 Active Assessment Chronic congestive heart failure, unspec ified heart failure type I50.9 Active Problem Essential hypertension I10 Activ e Medications Medication Code System Code Instructions Start Date End Date Status Dosage Furosemide [facility] [place] 28550808018 80 mg PO twice a day (bid) Active 1 tablet Zaroxolyn NDC 0 5 MG Orally Once a day in the morning February Active 1 tablet 30 minutes prior to Lasix Lisinopril ND 49641185371 5 MG Orally Once a day Ac tive 1 tablet Finasteride ND 57213782353 5 MG Orally Once a day A ctive 1 tablet OneTouch Test NDC 0 - SQ once daily (e11.9) Aug 12, 2017 Active as directed OneTouch Lancets NDC 56090584222 - SQ once daily (E11.9) Aug 12 17 Active as directed Atorvastatin Calcium ND 54134736471 40 mg Orally Once a day Jan Active 1 [place] [address]-99 20 MEQ Orally twice a day (bid) May 01, 2019 Active 1 tablet with food Amiodarone HCl ND 95138493169 100 MG Orally Once a day Active 1 [place] [address]-67 1000 mg Orally Twice a day Active 1 tablet with meals OneTouch Basic System NDC 0 w/Device SQ once daily (e11. 9) Aug 12, 2017 Active as directed Aspir-81 ND 26203170129 81 MG Orally Once a day Act dusty 1 tablet GlipiZIDE ND 92110229149 10 mg Orally Q PM daily Ac tive 1 tablet Tamsulosin HCl [facility] [place] [address]-07 0.4 MG Orally Acti ve not defined Levothyroxine Sodium ND 32931391848 75 MCG Orally Once a day 2017 Active 1 tablet on an empty stomach in the morn ing Isosorbide Dinitrate ND 72426167776 20 mg Orally TID Active 1 tablet Vital Signs Date/Time: March 30, 2020 Blood Pressure Systolic 130 mm Hg Weight WCB lbs Height 70 in Temperature 98.7 F Cardiac Monitoring Heart Rate 72 /min Blood Pressure Diastolic 62 mm Hg Results No Known Results Summary Purpose eClinicalWorks Submission
--- OUTSIDE RECORDS SUMMARY | 2020-06-23 23:14 | XMS REPORT ---
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
--- OUTSIDE RECORDS SUMMARY | 2020-06-23 23:14 | XMS REPORT ---
Author Author Jg Kumar [facility] eClinicalWorks Address Unknown Phone Unavailable Care Team Providers Care Stenciler Name Role Phone Ronald Kumar CP Unavailable Allergies, Adverse Reactions, Alerts Substance [...] e Problem Coronary artery disease invo lving [place] coronary artery of [place] heart, angina presence unspecified I25.10 Activ e Problem Atrial fibrillation, unspecified type I48.91 Active Assessment Mixed hyperlipidemia E78.2 Active Assessment Urinary tract infection without hematuria, site unspec ified N39.0 Active Problem Right-sided carotid artery disease I77.9 Active Assessment Anemia, unspecified type D64.9 Act dusty Problem Benign prostatic hyperplasia , presence of lower urinary tract symptoms unspecified N40.0 Active Assessment Acquired hypothyroidism E03.9 Acti ve Problem Type 2 diabetes mellitus wit h hyperglycemia, without long-term current use of insulin E11.65 Active Medications Medication Code System Code Instructions Start Date End Date Status Dosage Metformin HCl NDC 14645644427 1000 mg Orally Twice a day Active 1 tablet with meals Atorvastatin Calcium NDC 85571412183 40 mg Orally Once a day Jan Active 1 tablet OneTouch Basic System NDC 0 w/Device SQ once daily (e11. 9) Aug 12, 2017 Active as directed Levothyroxine Sodium NDC 25378808041 75 MCG Orally Once a day 2017 Active 1 tablet on an empty stomach in the morn ing Tamsulosin HCl NDC [address]-97 0.4 MG Orally Acti ve not defined Metoprolol Tartrate [facility] 91011124307 50 MG by mouth Twice a day Active 1 tablet OneTouch Test ND 0 - SQ once daily (e11.9) Aug 12, 2017 Active as directed OneTouch Lancets [facility] 21795883962 - SQ once daily (E11.9) Aug 12 17 Active as directed Finasteride [facility] 10178436278 5 MG Orally Once a day A ctive 1 tablet Amiodarone HCl [facility] 10030396740 100 MG Orally Once a day Active 1 tablet GlipiZIDE [facility] 52577558202 10 mg Orally twice a day (bid) Active 1 tablet Aspir-[address] [facility] 36368047857 81 MG Orally Once a day Act dusty 1 tablet Clopidogrel Bisulfate [facility] 15259653149 75 MG Orally Once a day Active 1 tablet Synthroid [facility] 36583235442 100 MCG Orally Once a day Oct 24, 2017 Active 1 tablet on an empty stomach in the morning Furosemide [facility] 86314154291 80MG Active 1 tablet q am; and 1/2 tablet q pm daily Orally 30 days Amlodipine Besylate [facility] 49196156455 10 MG Orally Once a day Active 1 tablet Vital Signs Date/Time: June 13, 2018 BMI 26.83 Index Weight 187 lbs Height 70 in Cardiac Monitoring Heart Rate 60 /min Blood Pressure Diastolic 64 mm Hg Blood Pressure Systolic 152 mm Hg Results No Known Results Summary Purpose eClinicalWorks Submission
--- OUTSIDE RECORDS SUMMARY | 2020-06-23 23:14 | XMS REPORT ---
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 artery of [place] heart, angina presence unspecified I25.10 Activ e Problem Atrial fibrillation, unspecified type I48.91 Active Problem Anemia, unspecified type D64.9 Act dusty Problem Hypothyroidism (acquired) E03.9 Ac tive Problem Benign prostatic hyperplasia , presence of lower urinary tract symptoms unspecified N40.0 Active Problem Type 2 diabetes mellitus wit h hyperglycemia, without long-term current use of insulin E11.65 Active Problem Use of cane as ambulatory aid R26.2 Active Problem Right-sided carotid artery disease I77.9 Active Problem Mixed hyperlipidemia E78.2 Active Medications No Known Medications Results No Known Results Summary Purpose eClinicalWorks Submission
== END 2020-05-18 18:29 ==
LOC: ER 17:58 → ERHOLD 05-17 06:37 → INTOOBSV 05-17 06:37 → ICU 05-17 09:01 → MED/SURG2 05-17 17:17
PROVIDERS: ADMIT Internal Medicine; ATTEND Internal Medicine
DX: E11.649 Type 2 diabetes mellitus with hypoglycemia without coma (principal); I50.23 Acute on chronic systolic (congestive) heart failure; E03.9 Hypothyroidism, unspecified; I25.10 Atherosclerotic heart disease of native coronary artery without angina pectoris; Z89.511 Acquired absence of right leg below knee; E11.22 Type 2 diabetes mellitus with diabetic chronic kidney disease; N18.3 Chronic kidney disease, stage 3 (moderate); E11.51 Type 2 diabetes mellitus with diabetic peripheral angiopathy without gangrene; Z79.4 Long term (current) use of insulin; N40.0 Benign prostatic hyperplasia without lower urinary tract symptoms; D64.9 Anemia, unspecified; I13.0 Hypertensive heart and chronic kidney disease with heart failure and stage 1 through stage 4 chronic kidney disease, or unspecified chronic kidney disease; I50.22 Chronic systolic (congestive) heart failure; Z95.1 Presence of aortocoronary bypass graft; I48.0 Paroxysmal atrial fibrillation; Z79.01 Long term (current) use of anticoagulants; Z11.59 Encounter for screening for other viral diseases
CPT/HCPCS: 36415 ×3; 71045 ×2; 80048; 80053 ×2; 81001; 82550 ×2; 82553 ×2; 82948 ×3; 83036 ×2; 83880; 84439; 84443 ×2; 84484 ×2; 84681; 85025 ×2; 87635; 93005; 93306; 94640; 99251; 99285; G0378 ×2; J0696; J1940 ×2; J2354 ×2; J2930; J7050; J7799 ×2; U0002